=== PATIENT | female | born 1945 | race African-American/Black ===

== ENCOUNTER 2016-08-28 17:58 | Inpatient (IN) | payer OTHER ==
[~2016-08-28] VITALS: Ht 160 cm; Wt 92.6 kg
[~2016-08-28 17:58] MED LIST: ADVAIR 100/501 DISK IH; ADVAIR 250/501 DISK IH; ADVAIR HFA120 INHALA IH; ALPRAZOLAM0.25 M2 PO; ANTIVERT25 MG PO; APRESOLINE25 MG PO; ARTIFICIAL TEAR15 M3 BOTH EYES; ASPIR-LOW81 MG PO; AUGMENTIN875 MG PO; BENTYL10 MG PO; CALAN40 MG PO; CATAPRES0.2 MG PO; CIPRO500 MG PO; CLARITIN10 M3 PO; D-VERT25 MG PO; DELTASONE20 M1 PO; DIABETA,MICRONAS5 MG PO; DIABETA5 MG PO; DULCOLAX10 MG PR; ENDOCET 5-3251 EAC1 PO; ENDOCET 7.5-321 EACH PO; FLEET MINERAL133 ML PR; FLONASE16 G1 BOTH NARES; FLONASE16 GM NS; FORTAMET1000 M1 PO; GABAPENTIN300 MG PO; GABAPENTIN600 MG PO; GLUCOPHAGE500 MG PO; GLUCOVANCE 51 TABLET PO; GLYBURIDE5 MG PO; HUMALOG100 UNIT/1 SC; HUMALOG100 UNIT/2 SC; HYDRALAZINE HCL10 MG PO; HYDROCHLOROTHIA25 MG PO; IBUPROFEN800 MG PO; KEFLEX500 MG PO; LAMISIL PO; LASIX20 MG PO; LEVEMIR FL100 UNIT/1 SC; LEVEMIR100 UNIT/2 SC; LEVOFLOXACIN750 MG PO; LEXAPRO5 MG PO; LIDODERM700 MG TP; LISINOPRIL40 MG PO; LOPRESSOR50 MG PO; LORCET 5-325 M1 EACH PO; LORTAB 5-325 M1 EACH PO; MECLIZINE HCL25 M3 PO; METFORMIN HCL1000 MG PO; METFORMIN HCL500 MG PO; METOPROLOL SUC100 MG PO; METOPROLOL SUCC25 MG PO; METOPROLOL TART25 MG PO; MILK OF MAGN PO; MONTELUKAST SOD10 MG PO; MOTRIN PM CAPL1 EAC1 PO; MOTRIN800 MG PO; NEURONTIN100 MG PO; NEURONTIN300 MG PO; NICODERM CQ1 EAC2 TD; NICOTINE PATCH1 EAC2 TD; NIFEDICAL XL60 MG PO; NIFEDIPINE ER60 MG PO; NORCO 5/3251 TABLET PO; NOVOLOG 10100 UNITS/ SC; NOVOLOG PE100 UNITS/ SC; OPTIVAR 0.120 DROP/6 BOTH EYES; OXAYDO5 MG PO; PANTOPRAZOLE SO40 MG PO; PRAVACHOL40 MG PO; PRAVASTATIN SOD40 MG PO; PREDNISONE20 MG PO; PROAIR HFA8.5 GM IH; PROVENTIL,2.5 MG/3 M IH; REGLAN10 MG PO; RISPERDAL0.5 MG PO; RISPERDAL1 MG PO; SENNA8.6 M1 PO; SERTRALINE HCL25 MG PO; SIMVASTATIN40 MG PO; SINGULAIR10 MG PO; SPIRIVA RESPIMAT4 GM IH; SPIRIVA1 INHALATI IH; SYSTANE ULTRA; TRAMADOL HCL50 MG PO; TYLENOL PM1 CAPLET PO; TYLENOL REGULA325 MG PO; VALISONE 0.1%15 GM PO; VANOS60 GM TP; VERAPAMIL HCL40 MG PO; VERAPAMIL HCL80 MG PO; VIBRAMYCIN100 M2 PO; XANAX0.125 MG PO; XANAX0.25 MG PO; Xanax PO; ZANTAC150 MG PO; ZESTRIL,PRINIVI40 MG PO; ZESTRIL40 MG PO; ZOCOR40 MG PO; ZOLOFT25 MG PO; ZONEGRAN100 MG PO; [UNRECOGNIZED DRUG - OTHER]
[2016-08-28 19:41] LABS: EOSINOPHIL (%) 1.2 % (0-5); EOSINOPHIL COUNT 0.1 K/uL (0-0.3); HEMATOCRIT 28.2 % (36.0-46.0); IMMATURE GRANULOCYTE (%) 0.3 % (0.0-0.7); IMMATURE GRANULOCYTE COUNT 0.2 K/uL; LYMPHOCYTE COUNT 2.5 K/uL (1.0-2.8); MCH 26.4 PG (29.0-34.0); MCHC 32.6 G/DL (30.0-36.0); MCV 80.8 FL (83-99); MEAN PLAT.VOLUME 9.4 uM^3 (9.5-12.4); MONOCYTE (%) 7.5 % (3-12); MONOCYTE COUNT 0.6 K/uL (0-0.8); NEUTROPHIL (%) 58.8 % (45-76); NEUTROPHIL COUNT 4.6 K/uL (1.8-6.4); PLATELET COUNT 268 K/uL (156-360); RBC DIS.WIDTH-CV 15.6 % (11.8-14.6); RBC DIS.WIDTH-SD 44.5 % (39-53); RED BLOOD COUNT 3.49 M/uL (3.80-5.20); WHITE BLOOD COUNT 7.7 K/uL (4.1-10.2)
[2016-08-28 19:46] LABS: CHLORIDE 113 mEq/L (99-109); POTASSIUM 4.5 mEq/L (3.7-5.4); SODIUM 142 mEq/L (136-147)
[2016-08-28 19:48] LABS: GLUCOSE 144 mg/dL (70-99)
[2016-08-28 19:50] LABS: ANION GAP 11 MEQ/L (2-14)
[2016-08-28 19:52] LABS: GFR ESTIMATE (CALCULATED) 20 mL/min/
[2016-08-28 19:53] LABS: UREA NITROGEN (BUN) 31 mg/dL (9-23)
[2016-08-28 19:57] LABS: ADD MIUA? YES; BILIRUBIN NEGATIVE; BLOOD TRACE; COLOR YELLOW ((YELLOW)); GLUCOSE (STRIP) 100; KETONES NEGATIVE; LEUKOCYTES NEGATIVE; NITRITE NEGATIVE; PH, URINE 6.5 (5-8); PROTEIN (STRIP) >=300; SPECIFIC GRAVITY 1.009 (1.000-1.030); UROBILINOGEN 0.2 MG/DL (0.2-1.0)
[2016-08-28 20:12] LABS: BACTERIA NONE SEEN; CASTS NONE SEEN /LPF; CRYSTALS NONE SEEN; EPITHELIAL CELLS RARE; MUCUS NONE SEEN; PATHOLOGICAL CAST NONE SEEN; RED BLOOD CELLS 0-5 /HPF (0-5); SMALL ROUND CELL NONE SEEN; YEAST-LIKE CELL NONE SEEN
[2016-08-29] VITALS (9 sets, daily range): BP systolic 149–190; BP diastolic 73–100
[2016-08-29 03:14] LABS: TROP-I INTERPRETATION NEGATIVE; TROPONIN-I 0.02 ng/mL (0.0-0.30)
[2016-08-29 04:35] LABS: UR CREATININE CONCENTRATION 78.1 MG/DL
[2016-08-29 09:00] LABS: ANION GAP 8 MEQ/L (2-14); CHLORIDE 113 MEQ/L (99-109); GFR ESTIMATE (CALCULATED) 20 mL/min/; GLUCOSE 116 mg/dL (70-99); SAMPLE HEMOLYSIS CHECK 0; SAMPLE ICTERIC CHECK 0; SAMPLE LIPEMIA CHECK 0; SODIUM 140 MEQ/L (136-147); UREA NITROGEN (BUN) 28 mg/dL (9-23)
[2016-08-29 09:34] LABS: TROP-I INTERPRETATION NEGATIVE; TROPONIN-I 0.01 ng/mL (0.0-0.30)
[2016-08-29 11:44] LABS: POINT-OF-CARE METER ID UU14174225
[2016-08-29 15:17] LABS: TROP-I INTERPRETATION NEGATIVE; TROPONIN-I 0.02 ng/mL (0.0-0.30)
[2016-08-29 19:02] LABS: UR CREATININE CONCENTRATION 122.6 MG/DL
[2016-08-30 03:58] VITALS: BP 146/65
[2016-08-30 06:52] LABS: Estimated Average Glucose 174 mg/dL (70-123); HEMOGLOBIN A1c (GLYCOHEMOGLOB) 7.7 % HGB (Below 5.7)
[2016-08-30 07:06] LABS: EOSINOPHIL COUNT 0.2 K/uL (0-0.3); HEMATOCRIT 25.7 % (36.0-46.0); IMMATURE GRANULOCYTE (%) 0.1 % (0.0-0.7); LYMPHOCYTE COUNT 3.1 K/uL (1.0-2.8); MCH 26.3 PG (29.0-34.0); MCHC 32.3 G/DL (30.0-36.0); MCV 81.6 FL (83-99); MEAN PLAT.VOLUME 10.2 uM^3 (9.5-12.4); MONOCYTE (%) 9.2 % (3-12); MONOCYTE COUNT 0.7 K/uL (0-0.8); NEUTROPHIL (%) 46.3 % (45-76); NEUTROPHIL COUNT 3.4 K/uL (1.8-6.4); PLATELET COUNT 240 K/uL (156-360); RBC DIS.WIDTH-CV 15.7 % (11.8-14.6); RBC DIS.WIDTH-SD 47.1 % (39-53); RED BLOOD COUNT 3.15 M/uL (3.80-5.20); WHITE BLOOD COUNT 7.4 K/uL (4.1-10.2)
[2016-08-30 07:24] VITALS: BP 151/62
[2016-08-30 07:35] LABS: ANION GAP 9 MEQ/L (2-14); CHLORIDE 112 MEQ/L (99-109); GFR ESTIMATE (CALCULATED) 18 mL/min/; GLUCOSE 166 mg/dL (70-99); MAGNESIUM 1.6 mg/dl (1.3-2.7); POTASSIUM 4.2 MEQ/L (3.7-5.4); SAMPLE HEMOLYSIS CHECK 0; SAMPLE ICTERIC CHECK 0; SAMPLE LIPEMIA CHECK 0; SODIUM 141 MEQ/L (136-147); UREA NITROGEN (BUN) 33 mg/dL (9-23)
[2016-08-30 07:42] LABS: INTACT PARATHYROID HORMONE 256 pg/mL (10-69)
[2016-08-30 07:59] LABS: URIC ACID 7.7 mg/dL (3.1-9.2)
[2016-08-30 11:49] VITALS: BP 171/72
[2016-08-30 15:34] VITALS: BP 163/71
[2016-08-30 19:59] VITALS: BP 158/68
[2016-08-31 00:20] VITALS: BP 158/75
[2016-08-31 04:00] VITALS: BP 153/69
[2016-08-31 07:20] LABS: ANION GAP 10 MEQ/L (2-14); CHLORIDE 112 MEQ/L (99-109); GFR ESTIMATE (CALCULATED) 18 mL/min/; GLUCOSE 148 mg/dL (70-99); SAMPLE HEMOLYSIS CHECK 0; SAMPLE ICTERIC CHECK 0; SAMPLE LIPEMIA CHECK 0; SODIUM 142 MEQ/L (136-147); UREA NITROGEN (BUN) 33 mg/dL (9-23)
[2016-08-31 07:57] LABS: HEMATOCRIT 25.5 % (36.0-46.0); MCH 26.1 PG (29.0-34.0); MCHC 32.5 G/DL (30.0-36.0); MCV 80.2 FL (83-99); MEAN PLAT.VOLUME 9.9 uM^3 (9.5-12.4); PLATELET COUNT 238 K/uL (156-360); RBC DIS.WIDTH-CV 15.6 % (11.8-14.6); RED BLOOD COUNT 3.18 M/uL (3.80-5.20); WHITE BLOOD COUNT 5.9 K/uL (4.1-10.2)
[2016-08-31 12:25] VITALS: BP 161/72
[2016-08-31 15:30] VITALS: BP 165/70
[2016-08-31 20:12] VITALS: BP 172/77
[2016-09-01] VITALS: BP 180/70
[2016-09-01 04:00] VITALS: BP 166/72
[2016-09-01 06:33] LABS: EOSINOPHIL (%) 2.5 % (0-5); EOSINOPHIL COUNT 0.2 K/uL (0-0.3); HEMATOCRIT 26.2 % (36.0-46.0); IMMATURE GRANULOCYTE (%) 0.2 % (0.0-0.7); LYMPHOCYTE COUNT 2.5 K/uL (1.0-2.8); MCH 26.4 PG (29.0-34.0); MCHC 32.8 G/DL (30.0-36.0); MCV 80.4 FL (83-99); MEAN PLAT.VOLUME 10.5 uM^3 (9.5-12.4); MONOCYTE (%) 8.5 % (3-12); MONOCYTE COUNT 0.5 K/uL (0-0.8); NEUTROPHIL (%) 48.9 % (45-76); NEUTROPHIL COUNT 3.1 K/uL (1.8-6.4); PLATELET COUNT 230 K/uL (156-360); RBC DIS.WIDTH-CV 15.2 % (11.8-14.6); RBC DIS.WIDTH-SD 44.9 % (39-53); RED BLOOD COUNT 3.26 M/uL (3.80-5.20); WHITE BLOOD COUNT 6.3 K/uL (4.1-10.2)
[2016-09-01 06:56] LABS: ANION GAP 11 MEQ/L (2-14); CHLORIDE 110 MEQ/L (99-109); GFR ESTIMATE (CALCULATED) 17 mL/min/; GLUCOSE 161 mg/dL (70-99); POTASSIUM 4.3 MEQ/L (3.7-5.4); SAMPLE HEMOLYSIS CHECK 0; SAMPLE ICTERIC CHECK 0; SAMPLE LIPEMIA CHECK 0; SODIUM 141 MEQ/L (136-147); UREA NITROGEN (BUN) 39 mg/dL (9-23)
[2016-09-01 07:35] VITALS: BP 178/75
[2016-09-01 11:49] VITALS: BP 171/70
[2016-09-01] MEDS ORDERED: CLONIDINE HCL0.2 MG PO (12:09)
[2016-09-01] MEDS ORDERED: APRESOLINE25 MG PO (12:09)
[2016-09-01] MEDS ORDERED: Procardia XL,Adalat PO (12:09)
[2016-09-01] MEDS ORDERED: INDERAL40 MG PO (12:09)
[2016-09-01 13:30] VITALS: BP 164/60
== END 2016-09-01 14:23 | disposition home health service (06) | DRG 683 ==
LOC: EME 17:58 → EDOF 08-29 01:11 → 5SOUTH 08-29 01:11
PROVIDERS: Emergency Medicine; Family Medicine; Hospitalist; Internal Medicine; Internal Medicine Nephrology; Nurse Practitioner Adult Health
DX: N17.9 Acute kidney failure, unspecified (principal); I16.1 Hypertensive emergency; I12.9 Hypertensive chronic kidney disease with stage 1 through stage 4 chronic kidney disease, or unspecified chronic kidney disease; N18.4 Chronic kidney disease, stage 4 (severe); E11.22 Type 2 diabetes mellitus with diabetic chronic kidney disease; B18.2 Chronic viral hepatitis C; E78.5 Hyperlipidemia, unspecified; D50.9 Iron deficiency anemia, unspecified; F17.210 Nicotine dependence, cigarettes, uncomplicated; E66.9 Obesity, unspecified; Z68.36 Body mass index [BMI] 36.0-36.9, adult; Z23 Encounter for immunization; Z91.14 Patient's other noncompliance with medication regimen; Z79.4 Long term (current) use of insulin; T39.395A Adverse effect of other nonsteroidal anti-inflammatory drugs [NSAID], initial encounter
CPT/HCPCS: 70450; 71010; 76770; 80048; 81003; 82306; 82570; 82948; 83036; 83735; 83970; 84100; 84156; 84300; 84484; 84550; 85025; 85027; 93005; 99281; 99285; J0360; J1200; J1644; J1815; J2270; J2765; J7030

== ENCOUNTER 2017-02-03 18:11 | Emergency (ER) | payer OTHER ==
[~2017-02-03] VITALS: Ht 160 cm; Wt 83.1 kg
[~2017-02-03 18:11] MED LIST changes: +CLONIDINE HCL0.2 MG PO; +INDERAL40 MG PO; +Procardia XL,Adalat PO
[2017-02-03 20:49] LABS: ADD MIUA? YES; BILIRUBIN NEGATIVE; BLOOD NEGATIVE; COLOR YELLOW ((YELLOW)); GLUCOSE (STRIP) >=500; KETONES NEGATIVE; LEUKOCYTES NEGATIVE; NITRITE NEGATIVE; PROTEIN (STRIP) >=500; SPECIFIC GRAVITY 1.012 (1.000-1.030); UROBILINOGEN 0.2 MG/DL (0.2-1.0)
[2017-02-03 20:52] LABS: BACTERIA RARE /HPF; EPITHELIAL CELLS RARE /HPF; MUCUS NONE SEEN /LPF; RED BLOOD CELLS 0-5 /HPF (0-5); UCUL ADDED? NO; WHITE BLOOD CELLS 0-5 /HPF (0-5)
[2017-02-03 20:54] LABS: ANION GAP 12 MEQ/L (2-14); CHLORIDE 113 MEQ/L (99-109); POTASSIUM 4.3 MEQ/L (3.7-5.4); SAMPLE HEMOLYSIS CHECK 0; SAMPLE ICTERIC CHECK 0; SAMPLE LIPEMIA CHECK 0; SODIUM 141 MEQ/L (136-147); TOTAL BILIRUBIN 0.2 MG/DL (0.0-1.0)
[2017-02-03 21:00] LABS: ALKALINE PHOSPHATASE 85 IU/L (3-129); GFR ESTIMATE (CALCULATED) 13 mL/min/; GLUCOSE 229 mg/dL (70-99); UREA NITROGEN (BUN) 35 mg/dL (9-23)
[2017-02-03 21:05] LABS: POINT-OF-CARE METER ID UU14100415
[2017-02-03 22:03] LABS: EOSINOPHIL (%) 1.6 % (0-5); EOSINOPHIL COUNT 0.1 K/uL (0-0.3); IMMATURE GRANULOCYTE (%) 0.5 % (0.0-0.7); INSTRUMENT ABS NEUTROPHIL CT 4.4 K/uL; LYMPHOCYTE COUNT 2.9 K/uL (1.0-2.8); MCH 25.9 PG (29.0-34.0); MCHC 31.3 G/DL (30.0-36.0); MCV 82.7 FL (83-99); MONOCYTE (%) 8.9 % (3-12); MONOCYTE COUNT 0.7 K/uL (0-0.8); NEUTROPHIL (%) 53.5 % (45-76); NEUTROPHIL COUNT 4.4 K/uL (1.8-6.4); RBC DIS.WIDTH-CV 16.4 % (11.8-14.6); RBC DIS.WIDTH-SD 49.2 % (39-53); RED BLOOD COUNT 3.75 M/uL (3.80-5.20); WHITE BLOOD COUNT 8.1 K/uL (4.1-10.2)
[2017-02-03 22:49] VITALS: BP 201/84
[2017-02-03 23:05] LABS: HEMATOLOGY COMMENT 1 SMEAR COMPATIBLE; MEAN PLAT.VOLUME 10.3 uM^3 (9.5-12.4); PLATELET COUNT 121 K/uL (156-360)
== END 2017-02-03 22:51 | disposition home or self-care (01) ==
LOC: EME 18:11
PROVIDERS: Emergency Medicine
DX: I12.9 Hypertensive chronic kidney disease with stage 1 through stage 4 chronic kidney disease, or unspecified chronic kidney disease (principal); N18.9 Chronic kidney disease, unspecified; T46.5X6A Underdosing of other antihypertensive drugs, initial encounter; T38.3X6A Underdosing of insulin and oral hypoglycemic [antidiabetic] drugs, initial encounter; Z91.128 Patient's intentional underdosing of medication regimen for other reason; E11.9 Type 2 diabetes mellitus without complications; I25.2 Old myocardial infarction; E78.5 Hyperlipidemia, unspecified; E66.01 Morbid (severe) obesity due to excess calories; F17.200 Nicotine dependence, unspecified, uncomplicated; Z79.4 Long term (current) use of insulin; Z90.710 Acquired absence of both cervix and uterus
CPT/HCPCS: 70450; 71020; 80053; 81003; 82948; 84484; 85025; 93005; 99281; 99285

== ENCOUNTER 2017-02-10 10:24 | Inpatient (IN) | payer OTHER ==
[~2017-02-10] VITALS: Ht 160 cm; Wt 84.0 kg
[2017-02-10] MEDS ORDERED: HYDRALAZINE HCL25 MG PO (12:18)
[2017-02-10] MEDS ORDERED: NEURONTIN100 MG PO (12:20)
[2017-02-10] MEDS ORDERED: LOPRESSOR100 M1 PO (12:20)
[2017-02-10] MEDS ORDERED: NIFEDIPINE ER60 MG PO (12:20)
[2017-02-10] MEDS ORDERED: HUMALOG100 UNIT/1 SC (12:22)
[2017-02-10] MEDS ORDERED: LEVEMIR100 UNIT/2 SC (12:22)
[2017-02-10] MEDS ORDERED: PROTONIX40 MG PO (12:23)
[2017-02-10] MEDS ORDERED: PROAIR HFA8.5 GM IH (12:23)
[2017-02-10] MEDS ORDERED: ZOLOFT25 MG PO (12:23)
[2017-02-10] MEDS ORDERED: INCRUSE ELLI62.5 MCG IH (12:24)
[2017-02-10 13:11] LABS: HEMATOCRIT 29.8 % (36.0-46.0); MCH 26.2 PG (29.0-34.0); MCHC 32.6 G/DL (30.0-36.0); MCV 80.5 FL (83-99); PLATELET COUNT 232 K/uL (156-360); RBC DIS.WIDTH-CV 15.9 % (11.8-14.6); RBC DIS.WIDTH-SD 46.6 % (39-53); WHITE BLOOD COUNT 8.6 K/uL (4.1-10.2)
[2017-02-10 13:20] LABS: CHLORIDE 112 mEq/L (99-109); POTASSIUM 4.2 mEq/L (3.7-5.4); SODIUM 140 mEq/L (136-147)
[2017-02-10 13:22] LABS: GLUCOSE 280 mg/dL (70-99)
[2017-02-10 13:23] LABS: ANION GAP 13 MEQ/L (2-14)
[2017-02-10 13:24] LABS: TOTAL BILIRUBIN 0.2 mg/dL (0.0-1.0)
[2017-02-10 13:25] LABS: ALKALINE PHOSPHATASE 110 IU/L (3-129)
[2017-02-10 13:26] LABS: ADD MIUA? YES; BILIRUBIN NEGATIVE; BLOOD NEGATIVE; COLOR YELLOW ((YELLOW)); GLUCOSE (STRIP) >=500; KETONES NEGATIVE; LEUKOCYTES NEGATIVE; NITRITE NEGATIVE; PROTEIN (STRIP) >=500; SPECIFIC GRAVITY 1.011 (1.000-1.030); UROBILINOGEN 0.2 MG/DL (0.2-1.0)
[2017-02-10 13:26] LABS: GFR ESTIMATE (CALCULATED) 11 mL/min/
[2017-02-10 13:27] LABS: UREA NITROGEN (BUN) 46 mg/dL (9-23)
[2017-02-10 13:36] LABS: BACTERIA RARE /HPF; EPITHELIAL CELLS NONE SEEN /HPF; HYALINE CASTS 0-5 /LPF; MUCUS TRACE /LPF; RED BLOOD CELLS 0-5 /HPF (0-5); UCUL ADDED? NO; WHITE BLOOD CELLS 0-5 /HPF (0-5)
[2017-02-10 17:13] VITALS: BP 198/88
[2017-02-10 23:34] VITALS: BP 168/82
[2017-02-11 05:50] LABS: EOSINOPHIL (%) 2.2 % (0-5); EOSINOPHIL COUNT 0.2 K/uL (0-0.3); HEMATOCRIT 24.7 % (36.0-46.0); IMMATURE GRANULOCYTE (%) 0.3 % (0.0-0.7); INSTRUMENT ABS NEUTROPHIL CT 3.3 K/uL; LYMPHOCYTE COUNT 2.7 K/uL (1.0-2.8); MCH 26.8 PG (29.0-34.0); MCHC 32.8 G/DL (30.0-36.0); MCV 81.8 FL (83-99); MEAN PLAT.VOLUME 10.1 uM^3 (9.5-12.4); MONOCYTE (%) 10.2 % (3-12); MONOCYTE COUNT 0.7 K/uL (0-0.8); NEUTROPHIL (%) 47.5 % (45-76); NEUTROPHIL COUNT 3.3 K/uL (1.8-6.4); PLATELET COUNT 216 K/uL (156-360); RBC DIS.WIDTH-CV 16.2 % (11.8-14.6); RBC DIS.WIDTH-SD 48.4 % (39-53); RED BLOOD COUNT 3.02 M/uL (3.80-5.20); WHITE BLOOD COUNT 6.9 K/uL (4.1-10.2)
[2017-02-11 06:20] LABS: ANION GAP 9 MEQ/L (2-14); CHLORIDE 115 MEQ/L (99-109); GFR ESTIMATE (CALCULATED) 12 mL/min/; POTASSIUM 3.9 MEQ/L (3.7-5.4); SAMPLE HEMOLYSIS CHECK 0; SAMPLE ICTERIC CHECK 0; SAMPLE LIPEMIA CHECK 0; SODIUM 144 MEQ/L (136-147); UREA NITROGEN (BUN) 45 mg/dL (9-23)
[2017-02-11 06:31] LABS: GLUCOSE 75 mg/dL (70-99)
[2017-02-11 07:45] VITALS: BP 193/89
[2017-02-11 10:29] LABS: POINT-OF-CARE METER ID UU13113696
[2017-02-11 10:58] LABS: AHBS INDEX 0.39; HBSG INDEX 0.38; HEPATITIS B SURFACE ANTIBODY Nonreactive
[2017-02-11 11:01] LABS: ANTI-HEPATITIS A VIRUS (IGM) Nonreactive; HAV INDEX 0.22
[2017-02-11 11:02] LABS: ANTI-HEPATITIS B CORE (IGM) Nonreactive; HBC IgM INDEX 0.06; HPCA INDEX 10.87
[2017-02-11 12:12] LABS: POINT-OF-CARE METER ID UU13113819
[2017-02-11 14:57] VITALS: BP 180/82
[2017-02-11 19:44] VITALS: BP 165/73
[2017-02-11 21:43] LABS: POINT-OF-CARE METER ID UU14188625
[2017-02-11 23:55] VITALS: BP 141/65
[2017-02-12 04:12] VITALS: BP 144/71
[2017-02-12 07:40] LABS: ANION GAP 11 MEQ/L (2-14); CHLORIDE 107 MEQ/L (99-109); GFR ESTIMATE (CALCULATED) 15 mL/min/; GLUCOSE 136 mg/dL (70-99); POTASSIUM 3.7 MEQ/L (3.7-5.4); SAMPLE HEMOLYSIS CHECK 0; SAMPLE ICTERIC CHECK 0; SAMPLE LIPEMIA CHECK 0; SODIUM 140 MEQ/L (136-147); UREA NITROGEN (BUN) 31 mg/dL (9-23)
[2017-02-12 07:42] LABS: EOSINOPHIL (%) 2.2 % (0-5); EOSINOPHIL COUNT 0.2 K/uL (0-0.3); IMMATURE GRANULOCYTE (%) 0.4 % (0.0-0.7); INSTRUMENT ABS NEUTROPHIL CT 4.7 K/uL; LYMPHOCYTE COUNT 3.3 K/uL (1.0-2.8); MCH 26.9 PG (29.0-34.0); MCHC 33.5 G/DL (30.0-36.0); MCV 80.2 FL (83-99); MEAN PLAT.VOLUME 10.8 uM^3 (9.5-12.4); MONOCYTE (%) 8.9 % (3-12); MONOCYTE COUNT 0.8 K/uL (0-0.8); NEUTROPHIL (%) 51.9 % (45-76); NEUTROPHIL COUNT 4.7 K/uL (1.8-6.4); PLATELET COUNT 193 K/uL (156-360); RBC DIS.WIDTH-CV 16.3 % (11.8-14.6); RBC DIS.WIDTH-SD 47.2 % (39-53); RED BLOOD COUNT 3.24 M/uL (3.80-5.20)
[2017-02-12 12:12] VITALS: BP 158/72
[2017-02-12 16:59] LABS: POINT-OF-CARE METER ID UU14174225
[2017-02-12 21:15] LABS: POINT-OF-CARE METER ID UU14188625
[2017-02-12 23:58] VITALS: BP 178/81
[2017-02-13 08:00] VITALS: BP 180/81
[2017-02-13 08:25] LABS: POINT-OF-CARE METER ID UU14174225
[2017-02-13 12:00] VITALS: BP 189/79
[2017-02-13 12:28] LABS: POINT-OF-CARE METER ID UU14188625
[2017-02-13 16:27] VITALS: BP 178/77
[2017-02-13 17:13] LABS: POINT-OF-CARE METER ID UU13113717
[2017-02-13 21:10] VITALS: BP 153/70
[2017-02-14 00:22] VITALS: BP 173/73
[2017-02-14 03:11] VITALS: BP 163/72
[2017-02-14 06:07] LABS: POINT-OF-CARE METER ID UU13113717
[2017-02-14 07:45] VITALS: BP 145/67
[2017-02-14 12:35] LABS: POINT-OF-CARE METER ID UU14174225
[2017-02-14 16:06] VITALS: BP 145/59
[2017-02-14 23:41] VITALS: BP 163/74
[2017-02-15 05:33] VITALS: BP 153/74
[2017-02-15 07:32] LABS: EOSINOPHIL (%) 1.9 % (0-5); EOSINOPHIL COUNT 0.2 K/uL (0-0.3); HEMATOCRIT 24.6 % (36.0-46.0); IMMATURE GRANULOCYTE (%) 0.3 % (0.0-0.7); INSTRUMENT ABS NEUTROPHIL CT 5.1 K/uL; LYMPHOCYTE COUNT 2.4 K/uL (1.0-2.8); MCH 26.2 PG (29.0-34.0); MCHC 31.7 G/DL (30.0-36.0); MCV 82.6 FL (83-99); MEAN PLAT.VOLUME 9.9 uM^3 (9.5-12.4); MONOCYTE (%) 10.1 % (3-12); MONOCYTE COUNT 0.9 K/uL (0-0.8); NEUTROPHIL (%) 59.3 % (45-76); NEUTROPHIL COUNT 5.1 K/uL (1.8-6.4); PLATELET COUNT 195 K/uL (156-360); RBC DIS.WIDTH-CV 16.2 % (11.8-14.6); RBC DIS.WIDTH-SD 49.2 % (39-53); RED BLOOD COUNT 2.98 M/uL (3.80-5.20); WHITE BLOOD COUNT 8.6 K/uL (4.1-10.2)
[2017-02-15 07:44] LABS: ANION GAP 11 MEQ/L (2-14); CHLORIDE 102 MEQ/L (99-109); SAMPLE HEMOLYSIS CHECK 0; SAMPLE ICTERIC CHECK 0; SAMPLE LIPEMIA CHECK 0; SODIUM 135 MEQ/L (136-147)
[2017-02-15 07:51] LABS: GFR ESTIMATE (CALCULATED) 11 mL/min/; GLUCOSE 300 mg/dL (70-99); UREA NITROGEN (BUN) 45 mg/dL (9-23)
[2017-02-15 09:02] LABS: POINT-OF-CARE METER ID UU14174225
[2017-02-15 12:04] VITALS: BP 177/74
[2017-02-15 12:16] LABS: POINT-OF-CARE METER ID UU14188625
[2017-02-15 12:24] VITALS: BP 156/76
[2017-02-15 15:47] VITALS: BP 172/81
[2017-02-15 16:44] LABS: POINT-OF-CARE METER ID UU14188625
[2017-02-15 21:12] LABS: POINT-OF-CARE METER ID UU13113717
[2017-02-15 21:25] VITALS: BP 161/71
[2017-02-15 23:37] VITALS: BP 148/72
[2017-02-16 05:54] LABS: EOSINOPHIL (%) 1.2 % (0-5); EOSINOPHIL COUNT 0.1 K/uL (0-0.3); HEMATOCRIT 24.4 % (36.0-46.0); IMMATURE GRANULOCYTE (%) 0.2 % (0.0-0.7); INSTRUMENT ABS NEUTROPHIL CT 4.9 K/uL; LYMPHOCYTE COUNT 3.7 K/uL (1.0-2.8); MCH 26.6 PG (29.0-34.0); MCHC 32.8 G/DL (30.0-36.0); MCV 81.1 FL (83-99); MEAN PLAT.VOLUME 10.3 uM^3 (9.5-12.4); MONOCYTE (%) 10.1 % (3-12); NEUTROPHIL (%) 50.2 % (45-76); NEUTROPHIL COUNT 4.9 K/uL (1.8-6.4); PLATELET COUNT 189 K/uL (156-360); RBC DIS.WIDTH-SD 47.4 % (39-53); RED BLOOD COUNT 3.01 M/uL (3.80-5.20); WHITE BLOOD COUNT 9.8 K/uL (4.1-10.2)
[2017-02-16 06:44] LABS: ANION GAP 8 MEQ/L (2-14); CHLORIDE 103 MEQ/L (99-109); GFR ESTIMATE (CALCULATED) 15 mL/min/; POTASSIUM 3.8 MEQ/L (3.7-5.4); SAMPLE HEMOLYSIS CHECK 0; SAMPLE ICTERIC CHECK 0; SAMPLE LIPEMIA CHECK 0; SODIUM 140 MEQ/L (136-147); UREA NITROGEN (BUN) 26 mg/dL (9-23)
[2017-02-16 06:46] LABS: GLUCOSE 69 mg/dL (70-99)
[2017-02-16 08:23] LABS: POINT-OF-CARE METER ID UU14188625
[2017-02-16 10:33] LABS: POINT-OF-CARE METER ID UU13113696
[2017-02-16 16:16] VITALS: BP 162/73
[2017-02-16 17:19] LABS: POINT-OF-CARE METER ID UU14188625
[2017-02-16 21:20] LABS: POINT-OF-CARE METER ID UU14174225
[2017-02-16 22:10] VITALS: BP 120/62
[2017-02-16 23:44] VITALS: BP 126/69
[2017-02-17 07:49] VITALS: BP 141/69
[2017-02-17 08:23] LABS: EOSINOPHIL (%) 1.9 % (0-5); EOSINOPHIL COUNT 0.2 K/uL (0-0.3); IMMATURE GRANULOCYTE (%) 0.4 % (0.0-0.7); INSTRUMENT ABS NEUTROPHIL CT 4.6 K/uL; LYMPHOCYTE COUNT 2.3 K/uL (1.0-2.8); MCH 26.3 PG (29.0-34.0); MCHC 31.7 G/DL (30.0-36.0); MCV 82.7 FL (83-99); MEAN PLAT.VOLUME 10.3 uM^3 (9.5-12.4); MONOCYTE COUNT 0.9 K/uL (0-0.8); NEUTROPHIL (%) 57.8 % (45-76); NEUTROPHIL COUNT 4.6 K/uL (1.8-6.4); PLATELET COUNT 201 K/uL (156-360); RBC DIS.WIDTH-SD 48.4 % (39-53); RED BLOOD COUNT 2.78 M/uL (3.80-5.20)
[2017-02-17 08:55] LABS: ANION GAP 10 MEQ/L (2-14); CHLORIDE 104 MEQ/L (99-109); GFR ESTIMATE (CALCULATED) 13 mL/min/; GLUCOSE 172 mg/dL (70-99); POTASSIUM 4.1 MEQ/L (3.7-5.4); SAMPLE HEMOLYSIS CHECK 0; SAMPLE ICTERIC CHECK 0; SAMPLE LIPEMIA CHECK 0; SODIUM 139 MEQ/L (136-147); UREA NITROGEN (BUN) 35 mg/dL (9-23)
[2017-02-17 11:10] LABS: IRON 14 MCG/DL (35-150)
[2017-02-17 11:44] LABS: FERRITIN 87 NG/ML (10-291)
[2017-02-17 12:15] LABS: POINT-OF-CARE METER ID UU14188625
[2017-02-17 15:33] VITALS: BP 165/72
[2017-02-17 17:05] LABS: POINT-OF-CARE METER ID UU14188625
[2017-02-17 23:42] VITALS: BP 137/63
[2017-02-18 06:08] LABS: EOSINOPHIL (%) 1.7 % (0-5); EOSINOPHIL COUNT 0.2 K/uL (0-0.3); IMMATURE GRANULOCYTE (%) 0.3 % (0.0-0.7); INSTRUMENT ABS NEUTROPHIL CT 4.3 K/uL; LYMPHOCYTE COUNT 3.1 K/uL (1.0-2.8); MCH 25.8 PG (29.0-34.0); MCHC 31.2 G/DL (30.0-36.0); MCV 82.8 FL (83-99); MEAN PLAT.VOLUME 9.4 uM^3 (9.5-12.4); MONOCYTE (%) 12.8 % (3-12); MONOCYTE COUNT 1.1 K/uL (0-0.8); NEUTROPHIL (%) 49.3 % (45-76); NEUTROPHIL COUNT 4.3 K/uL (1.8-6.4); PLATELET COUNT 180 K/uL (156-360); RBC DIS.WIDTH-CV 15.8 % (11.8-14.6); RBC DIS.WIDTH-SD 48.2 % (39-53); RED BLOOD COUNT 3.02 M/uL (3.80-5.20); WHITE BLOOD COUNT 8.7 K/uL (4.1-10.2)
[2017-02-18 09:12] VITALS: BP 132/60
[2017-02-18 12:25] LABS: POINT-OF-CARE METER ID UU13113717
[2017-02-18 15:20] VITALS: BP 150/63
[2017-02-18 16:21] LABS: POINT-OF-CARE METER ID UU14188625
[2017-02-18 21:24] LABS: POINT-OF-CARE METER ID UU13113717
[2017-02-18 23:21] VITALS: BP 160/66
[2017-02-19 07:57] LABS: EOSINOPHIL (%) 2.1 % (0-5); EOSINOPHIL COUNT 0.2 K/uL (0-0.3); HEMATOCRIT 23.7 % (36.0-46.0); IMMATURE GRANULOCYTE (%) 0.3 % (0.0-0.7); INSTRUMENT ABS NEUTROPHIL CT 5.2 K/uL; LYMPHOCYTE COUNT 2.6 K/uL (1.0-2.8); MCH 27.1 PG (29.0-34.0); MCHC 32.5 G/DL (30.0-36.0); MCV 83.5 FL (83-99); MEAN PLAT.VOLUME 10.6 uM^3 (9.5-12.4); MONOCYTE (%) 10.1 % (3-12); MONOCYTE COUNT 0.9 K/uL (0-0.8); NEUTROPHIL (%) 58.6 % (45-76); NEUTROPHIL COUNT 5.2 K/uL (1.8-6.4); PLATELET COUNT 198 K/uL (156-360); RBC DIS.WIDTH-CV 15.9 % (11.8-14.6); RBC DIS.WIDTH-SD 48.2 % (39-53); RED BLOOD COUNT 2.84 M/uL (3.80-5.20); WHITE BLOOD COUNT 8.9 K/uL (4.1-10.2)
[2017-02-19 08:59] LABS: ANION GAP 9 MEQ/L (2-14); CHLORIDE 98 MEQ/L (99-109); POTASSIUM 4.4 MEQ/L (3.7-5.4); SAMPLE HEMOLYSIS CHECK 0; SAMPLE ICTERIC CHECK 0; SAMPLE LIPEMIA CHECK 0; UREA NITROGEN (BUN) 36 mg/dL (9-23)
[2017-02-19 09:01] LABS: GFR ESTIMATE (CALCULATED) 10 mL/min/; GLUCOSE 268 mg/dL (70-99); SODIUM 132 MEQ/L (136-147)
[2017-02-19 12:08] VITALS: BP 126/66
[2017-02-19 16:43] VITALS: BP 130/66
[2017-02-19 17:36] LABS: POINT-OF-CARE METER ID UU13113717
[2017-02-19 21:43] LABS: POINT-OF-CARE METER ID UU13113717
[2017-02-19 21:50] VITALS: BP 145/67
[2017-02-20 05:42] LABS: EOSINOPHIL COUNT 0.2 K/uL (0-0.3); HEMATOCRIT 25.1 % (36.0-46.0); IMMATURE GRANULOCYTE (%) 0.5 % (0.0-0.7); IMMATURE GRANULOCYTE COUNT 0.1 K/uL; INSTRUMENT ABS NEUTROPHIL CT 4.9 K/uL; MCH 25.4 PG (29.0-34.0); MCHC 31.1 G/DL (30.0-36.0); MCV 81.8 FL (83-99); MEAN PLAT.VOLUME 10.3 uM^3 (9.5-12.4); MONOCYTE (%) 10.9 % (3-12); NEUTROPHIL (%) 53.8 % (45-76); NEUTROPHIL COUNT 4.9 K/uL (1.8-6.4); NRBC (%) 0.2 /100 WBC (0-0); PLATELET COUNT 197 K/uL (156-360); RBC DIS.WIDTH-CV 15.8 % (11.8-14.6); RED BLOOD COUNT 3.07 M/uL (3.80-5.20); WHITE BLOOD COUNT 9.1 K/uL (4.1-10.2)
[2017-02-20 07:48] VITALS: BP 136/67
[2017-02-20 08:04] LABS: POINT-OF-CARE METER ID UU14174225
[2017-02-20 08:30] LABS: ANION GAP 9 MEQ/L (2-14); CHLORIDE 97 MEQ/L (99-109); POTASSIUM 4.4 MEQ/L (3.7-5.4); SAMPLE HEMOLYSIS CHECK 0; SAMPLE ICTERIC CHECK 0; SAMPLE LIPEMIA CHECK 0; SODIUM 131 MEQ/L (136-147)
[2017-02-20 08:39] LABS: GFR ESTIMATE (CALCULATED) 13 mL/min/; GLUCOSE 256 mg/dL (70-99); UREA NITROGEN (BUN) 26 mg/dL (9-23)
[2017-02-20 16:00] VITALS: BP 148/88
[2017-02-20 18:59] VITALS: BP 152/80
[2017-02-21 08:00] LABS: POINT-OF-CARE METER ID UU14174225
[2017-02-21 08:01] VITALS: BP 121/58
[2017-02-21] MEDS ORDERED: DIPHENHYDR12.5 MG/5 PO (11:06)
[2017-02-21] MEDS ORDERED: NICOTINE PATCH1 EAC2 TD (11:06)
[2017-02-21] MEDS ORDERED: LEVEMIR100 UNIT/2 SC ×2 (11:07)
[2017-02-21] MEDS ORDERED: HYDRALAZINE HCL10 MG PO (11:08)
[2017-02-21 12:03] LABS: POINT-OF-CARE METER ID UU14174225
== END 2017-02-21 16:22 | DRG 683 ==
LOC: EME 10:24 → EDOF 15:00 → 5SOUTH 15:17
PROVIDERS: Hospitalist; Internal Medicine; Internal Medicine Nephrology
PROC: 05HM33Z Insertion of Infusion Device into Right Internal Jugular Vein, Percutaneous Approach (ICD-10-PCS; principal; 2017-02-11)
PROC: B543ZZA Ultrasonography of Right Jugular Veins, Guidance (ICD-10-PCS; principal; 2017-02-11)
PROC: B5131ZA Fluoroscopy of Right Jugular Veins using Low Osmolar Contrast, Guidance (ICD-10-PCS; principal; 2017-02-11)
PROC: 5A1D60Z (ICD-10-PCS; 2017-02-14)
PROC: B543ZZA Ultrasonography of Right Jugular Veins, Guidance (ICD-10-PCS; 2017-02-16)
PROC: 05HM33Z Insertion of Infusion Device into Right Internal Jugular Vein, Percutaneous Approach (ICD-10-PCS; 2017-02-16)
DX: N18.6 End stage renal disease (principal); E87.2 Acidosis; E87.70 Fluid overload, unspecified; E11.65 Type 2 diabetes mellitus with hyperglycemia; E11.22 Type 2 diabetes mellitus with diabetic chronic kidney disease; J44.9 Chronic obstructive pulmonary disease, unspecified; I12.0 Hypertensive chronic kidney disease with stage 5 chronic kidney disease or end stage renal disease; I25.10 Atherosclerotic heart disease of native coronary artery without angina pectoris; D63.1 Anemia in chronic kidney disease; Z68.32 Body mass index [BMI] 32.0-32.9, adult; E11.40 Type 2 diabetes mellitus with diabetic neuropathy, unspecified; F17.210 Nicotine dependence, cigarettes, uncomplicated; B19.20 Unspecified viral hepatitis C without hepatic coma; E78.5 Hyperlipidemia, unspecified; F31.9 Bipolar disorder, unspecified; K21.9 Gastro-esophageal reflux disease without esophagitis
CPT/HCPCS: 71010; 80048; 80053; 80069; 80074; 81003; 82607; 82728; 82746; 82948; 83540; 84466; 85025; 85027; 86706; 93005; 94640; 94640 76; 94799; 99202; 99281; 99285; C1750; C1769; C1894; J0360; J0690; J0881; J1644; J1815; J2250; J2405; J3010; S0020

== ENCOUNTER 2017-05-25 07:19 | Day surgery (SDC) | payer OTHER ==
[~2017-05-25] VITALS: Ht 160 cm; Wt 81.6 kg
[~2017-05-25 07:19] MED LIST changes: +ACETAMINOPHEN325 M1 PO; +COLACE100 MG PO; +DIPHENHYDR12.5 MG/5 PO; +FERROUS SULFAT325 MG PO; +GABAPENTIN100 MG PO; +HYDRALAZINE HCL25 MG PO; +INCRUSE ELLI62.5 MCG IH; +LANTUS 3 M100 UNITS1 SC; +LOPRESSOR100 M1 PO; +METOPROLOL TAR100 MG PO; +OMEPRAZOLE20 M2 PO; +PROTONIX40 MG PO; +SENNA S TABLET1 EACH PO; +[UNRECOGNIZED DRUG - OTHER] TP
[2017-05-25 09:00] LABS: POINT-OF-CARE METER ID UU14174212
[2017-05-25 09:12] VITALS: BP 160/72
[2017-05-25 09:35] LABS: EOSINOPHIL (%) 2.7 % (0-5); EOSINOPHIL COUNT 0.2 K/uL (0-0.3); IMMATURE GRANULOCYTE (%) 0.3 % (0.0-0.7); INSTRUMENT ABS NEUTROPHIL CT 3.6 K/uL; LYMPHOCYTE COUNT 3.1 K/uL (1.0-2.8); MCH 25.2 PG (29.0-34.0); MCHC 32.2 G/DL (30.0-36.0); MCV 78.2 FL (83-99); MEAN PLAT.VOLUME 9.6 uM^3 (9.5-12.4); MONOCYTE COUNT 0.7 K/uL (0-0.8); NEUTROPHIL (%) 47.3 % (45-76); NEUTROPHIL COUNT 3.6 K/uL (1.8-6.4); PLATELET COUNT 206 K/uL (156-360); RBC DIS.WIDTH-SD 52.1 % (39-53); RED BLOOD COUNT 5.24 M/uL (3.80-5.20); WHITE BLOOD COUNT 7.7 K/uL (4.1-10.2)
[2017-05-25 10:17] LABS: POINT-OF-CARE METER ID UU14174212
[2017-05-25 10:22] LABS: ANION GAP 11 MEQ/L (2-14); CHLORIDE 97 MEQ/L (99-109); GFR ESTIMATE (CALCULATED) 13 mL/min/; GLUCOSE 120 mg/dL (70-99); SAMPLE HEMOLYSIS CHECK 2; SAMPLE ICTERIC CHECK 0; SAMPLE LIPEMIA CHECK 0; SODIUM 134 MEQ/L (136-147); UREA NITROGEN (BUN) 35 mg/dL (9-23)
[2017-05-25 10:42] LABS: METH RESISTANT S AUREUS PCR NEGATIVE (NEGATIVE)
[2017-05-25 10:44] LABS: PROBE CHECK PASS; SPECIMEN PROCESSING CONTROL PASS
[2017-05-25 11:48] LABS: POINT-OF-CARE METER ID UU13113675
[2017-05-25 12:15] VITALS: BP 154/69
[2017-05-25 13:16] VITALS: BP 163/67
== END 2017-05-25 13:32 ==
LOC: SDC 07:19
PROVIDERS: Surgery
PROC: 03170JD Bypass Right Brachial Artery to Upper Arm Vein with Synthetic Substitute, Open Approach (ICD-10-PCS; principal; 2017-05-25)
PROC: 3E03317 Introduction of Other Thrombolytic into Peripheral Vein, Percutaneous Approach (ICD-10-PCS; principal; 2017-05-25)
DX: I12.0 Hypertensive chronic kidney disease with stage 5 chronic kidney disease or end stage renal disease (principal); E11.22 Type 2 diabetes mellitus with diabetic chronic kidney disease; N18.6 End stage renal disease; Z99.2 Dependence on renal dialysis; Z91.15 Patient's noncompliance with renal dialysis; E78.00 Pure hypercholesterolemia, unspecified; K21.9 Gastro-esophageal reflux disease without esophagitis; Z87.891 Personal history of nicotine dependence; Z79.4 Long term (current) use of insulin; I25.2 Old myocardial infarction; Z86.73 Personal history of transient ischemic attack (TIA), and cerebral infarction without residual deficits
CPT/HCPCS: 80048; 82948; 84999; 85025; 87641; C1768; J0131; J0690; J1644; J2405; J2720; J3010

== ENCOUNTER → 2017-06-17 | Outpatient (CLI) | payer OTHER | LOC: AMB 08:13 | PROC: 02PYX3Z Removal of Infusion Device from Great Vessel, External Approach (ICD-10-PCS; principal; 2017-06-17) | DX: Z45.2 Encounter for adjustment and management of vascular access device (principal); N18.6 End stage renal disease; Z99.2 Dependence on renal dialysis ==

== ENCOUNTER 2017-07-31 11:39 | Emergency (ER) | payer OTHER ==
[~2017-07-31] VITALS: Ht 165.1 cm; Wt 82.8 kg
[2017-07-31 13:10] LABS: HEMATOCRIT 29.9 % (36.0-46.0); HEMOGLOBIN 9.7 G/DL (11.9-15.5); MCH 27.3 PG (29.0-34.0); MCHC 32.4 G/DL (30.0-36.0); MCV 84.2 FL (83-99); PLATELET COUNT 210 K/uL (156-360); RBC DIS.WIDTH-CV 20.3 % (11.8-14.6); RBC DIS.WIDTH-SD 63.3 % (39-53); RED BLOOD COUNT 3.55 M/uL (3.80-5.20); WHITE BLOOD COUNT 10.9 K/uL (4.1-10.2)
[2017-07-31 13:16] LABS: BASOPHIL (%) 0.4 % (0-1); EOSINOPHIL (%) 0.7 % (0-5); EOSINOPHIL COUNT 0.1 K/uL (0-0.3); IMMATURE GRANULOCYTE (%) 0.3 % (0.0-0.7); LYMPHOCYTE (%) 30.1 % (15-42); LYMPHOCYTE COUNT 3.3 K/uL (1.0-2.8); MONOCYTE (%) 7.1 % (3-12); MONOCYTE COUNT 0.8 K/uL (0-0.8); NEUTROPHIL (%) 61.4 % (45-76); NEUTROPHIL COUNT 6.7 K/uL (1.8-6.4)
[2017-07-31 13:28] LABS: ALBUMIN 3.2 G/DL (3.2-4.8); CHLORIDE 94 MEQ/L (99-109); POTASSIUM 3.7 MEQ/L (3.7-5.4); SODIUM 137 MEQ/L (136-147); TOTAL BILIRUBIN 0.5 MG/DL (0.0-1.0)
[2017-07-31 13:34] LABS: ALKALINE PHOSPHATASE 91 IU/L (3-129); ALT (GPT) 13 IU/L (3-49); AST (GOT) 16 IU/L (2-34); CREATININE 4.8 MG/DL (0.6-1.3); GFR ESTIMATE (CALCULATED) 11 mL/min/; GLUCOSE 139 mg/dL (70-99); UREA NITROGEN (BUN) 26 mg/dL (9-23)
[2017-07-31 13:45] LABS: APPEARANCE SL.HAZY ((CLEAR)); BILIRUBIN NEGATIVE; BLOOD NEGATIVE; COLOR AMBER ((YELLOW)); GLUCOSE (STRIP) NEGATIVE; KETONES NEGATIVE; LEUKOCYTES NEGATIVE; NITRITE NEGATIVE; PROTEIN (STRIP) >=500; SPECIFIC GRAVITY 1.015 (1.000-1.030); UROBILINOGEN 0.2 MG/DL (0.2-1.0)
[2017-07-31 13:52] LABS: BACTERIA RARE /HPF; EPITHELIAL CELLS NONE SEEN /HPF; MUCUS TRACE /LPF; RED BLOOD CELLS 0-5 /HPF (0-5); UCUL ADDED? NO; WHITE BLOOD CELLS 0-5 /HPF (0-5)
[2017-07-31 15:52] VITALS: BP 168/56
[2017-08-01] MEDS ORDERED: ALBUTEROL2.5 MG/3 M IH (16:53)
[2017-08-05] MEDS ORDERED: CALCIUM ACETAT667 MG PO (11:50)
[2017-08-05] MEDS ORDERED: ARICEPT10 MG PO (11:51)
[2017-08-05] MEDS ORDERED: NEPHRO-VITE RX1 EACH PO (11:54)
[2017-08-05] MEDS ORDERED: VITAMIN D32000 UNI1 PO (11:58)
== END 2017-07-31 16:43 | disposition home or self-care (01) ==
LOC: EME 11:39
PROVIDERS: Emergency Medicine
DX: F03.90 Unspecified dementia, unspecified severity, without behavioral disturbance, psychotic disturbance, mood disturbance, and anxiety (principal); R53.1 Weakness; W18.30XA Fall on same level, unspecified, initial encounter; Y92.129 Unspecified place in nursing home as the place of occurrence of the external cause; I12.0 Hypertensive chronic kidney disease with stage 5 chronic kidney disease or end stage renal disease; E11.22 Type 2 diabetes mellitus with diabetic chronic kidney disease; N18.6 End stage renal disease; Z79.4 Long term (current) use of insulin; Z99.2 Dependence on renal dialysis; R29.6 Repeated falls; J44.9 Chronic obstructive pulmonary disease, unspecified; F17.200 Nicotine dependence, unspecified, uncomplicated; E78.5 Hyperlipidemia, unspecified; I25.2 Old myocardial infarction; F32.9 Major depressive disorder, single episode, unspecified; F41.9 Anxiety disorder, unspecified; E66.01 Morbid (severe) obesity due to excess calories; Z68.30 Body mass index [BMI] 30.0-30.9, adult; M19.90 Unspecified osteoarthritis, unspecified site; K21.9 Gastro-esophageal reflux disease without esophagitis
CPT/HCPCS: 70450; 71010; 72125; 73522; 80053; 81003; 83605; 85025; 87040; 87502; 93005; 99281; 99285

== ENCOUNTER 2017-08-01 15:54 | Inpatient (IN) | payer OTHER ==
[~2017-08-01] VITALS: Ht 160 cm; Wt 74.0 kg
[~2017-08-01 15:54] MED LIST changes: +COLACE100 MG GT; -COLACE100 MG PO; +FERROUS SULFAT325 MG GT; -FERROUS SULFAT325 MG PO; +GABAPENTIN100 MG GT; -GABAPENTIN100 MG PO; +OMEPRAZOLE20 M2 GT; -OMEPRAZOLE20 M2 PO; +SENNA S TABLET1 EACH GT; -SENNA S TABLET1 EACH PO
[2017-08-01] MEDS ORDERED: ALBUTEROL2.5 MG/3 M IH (16:53)
[2017-08-01 22:01] VITALS: BP 156/70
[2017-08-02 00:21] LABS: HDL CHOLESTEROL 42 MG/DL (Desirable>=50); LDL CHOLESTEROL 129 mg/dL (Desirable<100); NON-HDL CHOLESTEROL 158 mg/dL (Desirable<160); TOTAL CHOLESTEROL 200 mg/dL (Desirable<200); TRIGLYCERIDES 144 MG/DL (Normal: <150)
[2017-08-02 03:46] VITALS: BP 172/74
[2017-08-02 07:11] LABS: Estimated Average Glucose 169 mg/dL (70-123)
[2017-08-02 07:18] LABS: HEMOGLOBIN A1c (GLYCOHEMOGLOB) 7.5 % HGB (Below 5.7)
[2017-08-02 08:12] VITALS: BP 132/60
[2017-08-02 12:16] VITALS: BP 131/70
[2017-08-02 19:13] VITALS: BP 198/83
[2017-08-03 03:39] VITALS: BP 180/87
[2017-08-03 07:44] VITALS: BP 174/84
[2017-08-03 16:10] VITALS: BP 174/86
[2017-08-03 19:59] VITALS: BP 156/86
[2017-08-04 00:06] VITALS: BP 182/63
[2017-08-04 03:59] VITALS: BP 158/88
[2017-08-04 07:40] LABS: BASOPHIL (%) 0.5 % (0-1); BASOPHIL COUNT 0.1 K/uL (0-0.1); EOSINOPHIL (%) 0.6 % (0-5); EOSINOPHIL COUNT 0.1 K/uL (0-0.3); HEMATOCRIT 35.3 % (36.0-46.0); HEMOGLOBIN 11.5 G/DL (11.9-15.5); IMMATURE GRANULOCYTE (%) 0.3 % (0.0-0.7); LYMPHOCYTE (%) 22.9 % (15-42); LYMPHOCYTE COUNT 2.3 K/uL (1.0-2.8); MCH 27.3 PG (29.0-34.0); MCHC 32.6 G/DL (30.0-36.0); MCV 83.6 FL (83-99); MONOCYTE COUNT 0.9 K/uL (0-0.8); NEUTROPHIL (%) 66.7 % (45-76); NEUTROPHIL COUNT 6.6 K/uL (1.8-6.4); RBC DIS.WIDTH-CV 19.2 % (11.8-14.6); RED BLOOD COUNT 4.22 M/uL (3.80-5.20); WHITE BLOOD COUNT 9.9 K/uL (4.1-10.2)
[2017-08-04 07:49] LABS: CHLORIDE 96 MEQ/L (99-109); CREATININE 5.4 MG/DL (0.6-1.3); GFR ESTIMATE (CALCULATED) 10 mL/min/; GLUCOSE 177 mg/dL (70-99); POTASSIUM 3.5 MEQ/L (3.7-5.4); SODIUM 138 MEQ/L (136-147); UREA NITROGEN (BUN) 32 mg/dL (9-23)
[2017-08-04 08:11] LABS: PLATELET COUNT 274 K/uL (156-360)
[2017-08-04 11:24] LABS: HEPATITIS B SURFACE ANTIGEN Nonreactive
[2017-08-04 15:40] VITALS: BP 183/88
[2017-08-04 19:52] VITALS: BP 179/118
[2017-08-05 00:05] VITALS: BP 141/66
[2017-08-05 02:55] VITALS: BP 138/72
[2017-08-05 08:09] VITALS: BP 136/74
[2017-08-05] MEDS ORDERED: CALCIUM ACETAT667 MG GT (11:50)
[2017-08-05] MEDS ORDERED: ARICEPT10 MG GT (11:51)
[2017-08-05] MEDS ORDERED: NEPHRO-VITE RX1 EACH GT (11:54)
[2017-08-05 11:58] VITALS: BP 138/80
[2017-08-05] MEDS ORDERED: VITAMIN D32000 UNI1 GT (11:58)
[2017-08-05] MEDS ORDERED: ALLERGY RE12.5 MG/5 PO (12:01)
[2017-08-05] MEDS ORDERED: ROBITUSSIN COU237 M2 PO (12:02)
[2017-08-05 20:30] VITALS: BP 164/72
[2017-08-05 23:18] VITALS: BP 159/68
[2017-08-06 03:35] VITALS: BP 132/84
[2017-08-06 08:14] LABS: BASOPHIL (%) 0.2 % (0-1); EOSINOPHIL (%) 0.1 % (0-5); HEMATOCRIT 34.9 % (36.0-46.0); HEMOGLOBIN 11.3 G/DL (11.9-15.5); IMMATURE GRANULOCYTE (%) 0.4 % (0.0-0.7); LYMPHOCYTE (%) 20.2 % (15-42); LYMPHOCYTE COUNT 2.4 K/uL (1.0-2.8); MCH 26.9 PG (29.0-34.0); MCHC 32.4 G/DL (30.0-36.0); MCV 83.1 FL (83-99); MONOCYTE (%) 8.9 % (3-12); MONOCYTE COUNT 1.1 K/uL (0-0.8); NEUTROPHIL (%) 70.2 % (45-76); NEUTROPHIL COUNT 8.4 K/uL (1.8-6.4); PLATELET COUNT 279 K/uL (156-360); RBC DIS.WIDTH-CV 19.4 % (11.8-14.6); RBC DIS.WIDTH-SD 59.1 % (39-53)
[2017-08-06 08:33] LABS: CHLORIDE 93 MEQ/L (99-109); GFR ESTIMATE (CALCULATED) 7 mL/min/; GLUCOSE 172 mg/dL (70-99); POTASSIUM 3.5 MEQ/L (3.7-5.4); SODIUM 137 MEQ/L (136-147)
[2017-08-06 08:49] LABS: UREA NITROGEN (BUN) 57 mg/dL (9-23)
[2017-08-06 10:38] VITALS: BP 141/67
[2017-08-06 11:41] VITALS: BP 178/74
[2017-08-06 19:11] VITALS: BP 166/79
[2017-08-06 23:53] VITALS: BP 175/80
[2017-08-07] VITALS (7 sets, daily range): BP systolic 148–187; BP diastolic 52–87
[2017-08-08 04:10] VITALS: BP 166/86
[2017-08-08 07:14] VITALS: BP 145/65
[2017-08-08 11:25] VITALS: BP 184/78
[2017-08-08 12:59] LABS: MAGNESIUM 2.5 mg/dl (1.3-2.7)
[2017-08-08 13:05] LABS: PHOSPHORUS 5.4 mg/dL (2.5-4.9)
[2017-08-08 15:11] VITALS: BP 142/67
[2017-08-08 19:35] VITALS: BP 162/69
[2017-08-08 23:58] VITALS: BP 148/79
[2017-08-09 03:48] VITALS: BP 157/71
[2017-08-09 07:33] VITALS: BP 142/80
[2017-08-09 09:05] LABS: BASOPHIL (%) 0.7 % (0-1); BASOPHIL COUNT 0.1 K/uL (0-0.1); EOSINOPHIL (%) 0.2 % (0-5); HEMATOCRIT 32.4 % (36.0-46.0); HEMOGLOBIN 10.7 G/DL (11.9-15.5); IMMATURE GRANULOCYTE (%) 0.5 % (0.0-0.7); LYMPHOCYTE (%) 26.7 % (15-42); LYMPHOCYTE COUNT 2.8 K/uL (1.0-2.8); MCH 27.3 PG (29.0-34.0); MCV 82.7 FL (83-99); MONOCYTE (%) 9.6 % (3-12); NEUTROPHIL (%) 62.3 % (45-76); NEUTROPHIL COUNT 6.5 K/uL (1.8-6.4); RBC DIS.WIDTH-CV 19.1 % (11.8-14.6); RBC DIS.WIDTH-SD 57.8 % (39-53); RED BLOOD COUNT 3.92 M/uL (3.80-5.20); WHITE BLOOD COUNT 10.4 K/uL (4.1-10.2)
[2017-08-09 09:18] LABS: ALBUMIN 3.4 g/dL (3.2-4.8); PLATELET COUNT 364 K/uL (156-360)
[2017-08-09 09:19] LABS: CHLORIDE 94 mEq/L (99-109); POTASSIUM 3.8 mEq/L (3.7-5.4); SODIUM 135 mEq/L (136-147)
[2017-08-09 09:21] LABS: GLUCOSE 230 mg/dL (70-99)
[2017-08-09 09:25] LABS: GFR ESTIMATE (CALCULATED) 5 mL/min/
[2017-08-09 09:26] LABS: CREATININE 9.1 mg/dL (0.6-1.3); UREA NITROGEN (BUN) 113 mg/dL (9-23)
[2017-08-09 12:00] VITALS: BP 164/72
[2017-08-09 16:06] VITALS: BP 177/69
[2017-08-09 21:36] VITALS: BP 170/78
[2017-08-09 23:53] VITALS: BP 154/66
[2017-08-10 04:07] VITALS: BP 153/67
[2017-08-10 08:18] VITALS: BP 147/75
[2017-08-10 11:47] VITALS: BP 117/59
[2017-08-10 15:57] VITALS: BP 126/48
[2017-08-10 20:03] VITALS: BP 127/54
[2017-08-11 00:11] VITALS: BP 119/52
[2017-08-11 07:59] LABS: STOOL OCCULT BLD 1ST SPECIMEN POSITIVE
[2017-08-11 08:02] LABS: BASOPHIL (%) 0.3 % (0-1); EOSINOPHIL (%) 0.6 % (0-5); EOSINOPHIL COUNT 0.1 K/uL (0-0.3); HEMATOCRIT 26.5 % (36.0-46.0); HEMOGLOBIN 8.9 G/DL (11.9-15.5); IMMATURE GRANULOCYTE (%) 0.4 % (0.0-0.7); LYMPHOCYTE (%) 25.6 % (15-42); LYMPHOCYTE COUNT 2.4 K/uL (1.0-2.8); MCH 27.8 PG (29.0-34.0); MCHC 33.6 G/DL (30.0-36.0); MCV 82.8 FL (83-99); MONOCYTE (%) 9.4 % (3-12); MONOCYTE COUNT 0.9 K/uL (0-0.8); NEUTROPHIL (%) 63.7 % (45-76); PLATELET COUNT 299 K/uL (156-360); RBC DIS.WIDTH-CV 18.8 % (11.8-14.6); RBC DIS.WIDTH-SD 57.5 % (39-53); WHITE BLOOD COUNT 9.4 K/uL (4.1-10.2)
[2017-08-11 08:27] LABS: TROP-I INTERPRETATION NEGATIVE; TROPONIN-I 0.06 ng/mL (0.0-0.30)
[2017-08-11 09:25] LABS: CHLORIDE 88 MEQ/L (99-109); CREATININE 7.9 MG/DL (0.6-1.3); GFR ESTIMATE (CALCULATED) 6 mL/min/; GLUCOSE 216 mg/dL (70-99); POTASSIUM 3.2 MEQ/L (3.7-5.4); SODIUM 132 MEQ/L (136-147); UREA NITROGEN (BUN) 93 mg/dL (9-23)
[2017-08-11 13:54] VITALS: BP 137/50
[2017-08-11 14:38] LABS: HEMATOCRIT 26.1 % (36.0-46.0); HEMOGLOBIN 8.4 G/DL (11.9-15.5); MCV 83.1 FL (83-99)
[2017-08-11 16:35] LABS: TROP-I INTERPRETATION NEGATIVE; TROPONIN-I 0.04 ng/mL (0.0-0.30)
[2017-08-11 16:45] VITALS: BP 160/63
[2017-08-11 20:24] VITALS: BP 120/55
[2017-08-11 21:50] VITALS: BP 126/60
[2017-08-12] VITALS (7 sets, daily range): BP systolic 120–152; BP diastolic 55–66
[2017-08-12 00:47] LABS: TROP-I INTERPRETATION NEGATIVE; TROPONIN-I 0.05 ng/mL (0.0-0.30)
[2017-08-12 09:06] LABS: TROP-I INTERPRETATION NEGATIVE; TROPONIN-I 0.05 ng/mL (0.0-0.30)
[2017-08-12 09:51] LABS: CHLORIDE 93 MEQ/L (99-109); GFR ESTIMATE (CALCULATED) 14 mL/min/; GLUCOSE 208 mg/dL (70-99); POTASSIUM 3.8 MEQ/L (3.7-5.4); SODIUM 132 MEQ/L (136-147)
[2017-08-12 09:52] LABS: UREA NITROGEN (BUN) 38 mg/dL (9-23)
[2017-08-12 09:54] LABS: BASOPHIL (%) 0.3 % (0-1); EOSINOPHIL (%) 0.9 % (0-5); EOSINOPHIL COUNT 0.1 K/uL (0-0.3); HEMATOCRIT 24.6 % (36.0-46.0); IMMATURE GRANULOCYTE (%) 0.5 % (0.0-0.7); LYMPHOCYTE (%) 18.6 % (15-42); LYMPHOCYTE COUNT 1.8 K/uL (1.0-2.8); MCH 27.8 PG (29.0-34.0); MCHC 32.5 G/DL (30.0-36.0); MCV 85.4 FL (83-99); MONOCYTE (%) 11.7 % (3-12); MONOCYTE COUNT 1.1 K/uL (0-0.8); NEUTROPHIL COUNT 6.5 K/uL (1.8-6.4); RBC DIS.WIDTH-CV 18.6 % (11.8-14.6); RBC DIS.WIDTH-SD 58.8 % (39-53); RED BLOOD COUNT 2.88 M/uL (3.80-5.20); WHITE BLOOD COUNT 9.5 K/uL (4.1-10.2)
[2017-08-12 10:13] LABS: PLAT.SUFFICIENCY ADEQUATE
[2017-08-12 10:17] LABS: PLATELET COUNT 201 K/uL (156-360)
[2017-08-12 16:35] LABS: TROP-I INTERPRETATION NEGATIVE; TROPONIN-I 0.04 ng/mL (0.0-0.30)
[2017-08-13 00:23] VITALS: BP 139/63
[2017-08-13 01:26] LABS: TROP-I INTERPRETATION NEGATIVE; TROPONIN-I 0.04 ng/mL (0.0-0.30)
[2017-08-13 07:36] VITALS: BP 88/54
[2017-08-13 09:49] LABS: BASOPHIL (%) 0.3 % (0-1); EOSINOPHIL (%) 2.1 % (0-5); EOSINOPHIL COUNT 0.2 K/uL (0-0.3); HEMOGLOBIN 7.7 G/DL (11.9-15.5); IMMATURE GRANULOCYTE (%) 0.5 % (0.0-0.7); LYMPHOCYTE (%) 20.1 % (15-42); LYMPHOCYTE COUNT 2.3 K/uL (1.0-2.8); MCHC 32.1 G/DL (30.0-36.0); MCV 84.2 FL (83-99); MONOCYTE COUNT 0.9 K/uL (0-0.8); NEUTROPHIL COUNT 7.8 K/uL (1.8-6.4); RBC DIS.WIDTH-CV 18.7 % (11.8-14.6); RBC DIS.WIDTH-SD 58.4 % (39-53); RED BLOOD COUNT 2.85 M/uL (3.80-5.20); WHITE BLOOD COUNT 11.4 K/uL (4.1-10.2)
[2017-08-13 09:57] LABS: PLATELET COUNT 272 K/uL (156-360)
[2017-08-13 10:48] LABS: TROP-I INTERPRETATION NEGATIVE; TROPONIN-I 0.04 ng/mL (0.0-0.30)
[2017-08-13 11:09] LABS: CHLORIDE 91 MEQ/L (99-109); GFR ESTIMATE (CALCULATED) 9 mL/min/; GLUCOSE 203 mg/dL (70-99); POTASSIUM 3.9 MEQ/L (3.7-5.4); SODIUM 131 MEQ/L (136-147)
[2017-08-13 11:10] LABS: CREATININE 5.7 MG/DL (0.6-1.3); UREA NITROGEN (BUN) 58 mg/dL (9-23)
[2017-08-13 16:12] LABS: TROP-I INTERPRETATION NEGATIVE; TROPONIN-I 0.04 ng/mL (0.0-0.30)
[2017-08-13 16:17] VITALS: BP 108/63
[2017-08-13 19:54] VITALS: BP 153/60
[2017-08-14 00:54] VITALS: BP 173/74
[2017-08-14 01:02] LABS: TROP-I INTERPRETATION NEGATIVE; TROPONIN-I 0.03 ng/mL (0.0-0.30)
[2017-08-14 05:03] VITALS: BP 152/65
[2017-08-14 07:36] VITALS: BP 194/82
[2017-08-14 09:33] LABS: BASOPHIL (%) 0.5 % (0-1); BASOPHIL COUNT 0.1 K/uL (0-0.1); EOSINOPHIL (%) 1.6 % (0-5); EOSINOPHIL COUNT 0.2 K/uL (0-0.3); HEMATOCRIT 33.4 % (36.0-46.0); IMMATURE GRANULOCYTE (%) 0.3 % (0.0-0.7); LYMPHOCYTE (%) 16.3 % (15-42); LYMPHOCYTE COUNT 1.7 K/uL (1.0-2.8); MCH 27.4 PG (29.0-34.0); MCHC 32.9 G/DL (30.0-36.0); MCV 83.3 FL (83-99); MONOCYTE (%) 9.2 % (3-12); NEUTROPHIL (%) 72.1 % (45-76); NEUTROPHIL COUNT 7.5 K/uL (1.8-6.4); PLATELET COUNT 233 K/uL (156-360); RBC DIS.WIDTH-CV 18.7 % (11.8-14.6); RBC DIS.WIDTH-SD 55.8 % (39-53); WHITE BLOOD COUNT 10.4 K/uL (4.1-10.2)
[2017-08-14 09:56] LABS: PLAT.SUFFICIENCY ADEQUATE; RED BLOOD COUNT 4.01 M/uL (3.80-5.20)
[2017-08-14 09:59] LABS: CHLORIDE 91 MEQ/L (99-109); GFR ESTIMATE (CALCULATED) 15 mL/min/; GLUCOSE 171 mg/dL (70-99); POTASSIUM 4.1 MEQ/L (3.7-5.4); SODIUM 133 MEQ/L (136-147); UREA NITROGEN (BUN) 30 mg/dL (9-23)
[2017-08-14 10:00] LABS: CREATININE 3.7 MG/DL (0.6-1.3)
[2017-08-14 10:21] LABS: TROP-I INTERPRETATION NEGATIVE; TROPONIN-I 0.03 ng/mL (0.0-0.30)
[2017-08-14 11:18] VITALS: BP 183/77
[2017-08-14 15:59] VITALS: BP 114/61
[2017-08-14 16:32] LABS: TROP-I INTERPRETATION NEGATIVE; TROPONIN-I 0.03 ng/mL (0.0-0.30)
[2017-08-14 19:40] VITALS: BP 177/74
[2017-08-15] VITALS (7 sets, daily range): BP systolic 135–154; BP diastolic 60–90
[2017-08-15 00:53] LABS: TROP-I INTERPRETATION NEGATIVE; TROPONIN-I 0.03 ng/mL (0.0-0.30)
[2017-08-15 09:14] LABS: BASOPHIL (%) 0.4 % (0-1); EOSINOPHIL COUNT 0.2 K/uL (0-0.3); HEMATOCRIT 30.2 % (36.0-46.0); HEMOGLOBIN 9.8 G/DL (11.9-15.5); IMMATURE GRANULOCYTE (%) 0.5 % (0.0-0.7); LYMPHOCYTE (%) 21.9 % (15-42); LYMPHOCYTE COUNT 2.3 K/uL (1.0-2.8); MCH 26.7 PG (29.0-34.0); MCHC 32.5 G/DL (30.0-36.0); MCV 82.3 FL (83-99); MONOCYTE (%) 8.5 % (3-12); MONOCYTE COUNT 0.9 K/uL (0-0.8); NEUTROPHIL (%) 66.7 % (45-76); PLATELET COUNT 274 K/uL (156-360); RBC DIS.WIDTH-CV 18.1 % (11.8-14.6); RBC DIS.WIDTH-SD 54.4 % (39-53); RED BLOOD COUNT 3.67 M/uL (3.80-5.20); WHITE BLOOD COUNT 10.5 K/uL (4.1-10.2)
[2017-08-15 09:37] LABS: CHLORIDE 88 MEQ/L (99-109); GFR ESTIMATE (CALCULATED) 10 mL/min/; GLUCOSE 187 mg/dL (70-99); POTASSIUM 4.1 MEQ/L (3.7-5.4); SODIUM 130 MEQ/L (136-147)
[2017-08-15 09:45] LABS: CREATININE 5.3 MG/DL (0.6-1.3); UREA NITROGEN (BUN) 53 mg/dL (9-23)
[2017-08-15 10:16] LABS: TROP-I INTERPRETATION NEGATIVE; TROPONIN-I 0.03 ng/mL (0.0-0.30)
[2017-08-15 16:20] LABS: TROP-I INTERPRETATION NEGATIVE; TROPONIN-I 0.03 ng/mL (0.0-0.30)
[2017-08-16 01:16] LABS: TROP-I INTERPRETATION NEGATIVE; TROPONIN-I 0.04 ng/mL (0.0-0.30)
[2017-08-16 03:39] VITALS: BP 140/62
[2017-08-16 07:40] VITALS: BP 175/74
[2017-08-16 08:10] LABS: BASOPHIL (%) 0.3 % (0-1); EOSINOPHIL (%) 2.1 % (0-5); EOSINOPHIL COUNT 0.2 K/uL (0-0.3); HEMATOCRIT 27.7 % (36.0-46.0); HEMOGLOBIN 9.3 G/DL (11.9-15.5); IMMATURE GRANULOCYTE (%) 0.4 % (0.0-0.7); LYMPHOCYTE (%) 18.8 % (15-42); MCH 27.4 PG (29.0-34.0); MCHC 33.6 G/DL (30.0-36.0); MCV 81.7 FL (83-99); MONOCYTE (%) 7.3 % (3-12); MONOCYTE COUNT 0.8 K/uL (0-0.8); NEUTROPHIL (%) 71.1 % (45-76); NEUTROPHIL COUNT 7.6 K/uL (1.8-6.4); PLATELET COUNT 274 K/uL (156-360); RBC DIS.WIDTH-CV 17.6 % (11.8-14.6); RED BLOOD COUNT 3.39 M/uL (3.80-5.20); WHITE BLOOD COUNT 10.7 K/uL (4.1-10.2)
[2017-08-16 08:21] LABS: CHLORIDE 87 MEQ/L (99-109); POTASSIUM 3.9 MEQ/L (3.7-5.4); SODIUM 127 MEQ/L (136-147)
[2017-08-16 08:30] LABS: CREATININE 6.5 MG/DL (0.6-1.3); GFR ESTIMATE (CALCULATED) 8 mL/min/; GLUCOSE 187 mg/dL (70-99); UREA NITROGEN (BUN) 69 mg/dL (9-23)
[2017-08-16 09:24] LABS: TROP-I INTERPRETATION NEGATIVE; TROPONIN-I 0.04 ng/mL (0.0-0.30)
[2017-08-16 13:29] VITALS: BP 141/65
[2017-08-16 15:57] VITALS: BP 152/66
[2017-08-16 16:30] LABS: TROP-I INTERPRETATION NEGATIVE; TROPONIN-I 0.03 ng/mL (0.0-0.30)
[2017-08-16 19:26] VITALS: BP 166/70
[2017-08-17 00:04] VITALS: BP 169/74
[2017-08-17 01:00] LABS: TROP-I INTERPRETATION NEGATIVE; TROPONIN-I 0.03 ng/mL (0.0-0.30)
[2017-08-17 04:08] VITALS: BP 154/68
[2017-08-17 07:02] LABS: BASOPHIL (%) 0.5 % (0-1); BASOPHIL COUNT 0.1 K/uL (0-0.1); EOSINOPHIL (%) 2.3 % (0-5); EOSINOPHIL COUNT 0.2 K/uL (0-0.3); HEMATOCRIT 29.2 % (36.0-46.0); HEMOGLOBIN 9.7 G/DL (11.9-15.5); IMMATURE GRANULOCYTE (%) 0.3 % (0.0-0.7); LYMPHOCYTE (%) 20.3 % (15-42); LYMPHOCYTE COUNT 2.1 K/uL (1.0-2.8); MCH 27.6 PG (29.0-34.0); MCHC 33.2 G/DL (30.0-36.0); MCV 83.2 FL (83-99); MONOCYTE (%) 9.9 % (3-12); NEUTROPHIL (%) 66.7 % (45-76); NEUTROPHIL COUNT 6.9 K/uL (1.8-6.4); PLATELET COUNT 266 K/uL (156-360); RBC DIS.WIDTH-CV 17.6 % (11.8-14.6); RED BLOOD COUNT 3.51 M/uL (3.80-5.20); WHITE BLOOD COUNT 10.4 K/uL (4.1-10.2)
[2017-08-17 07:45] LABS: ALBUMIN 2.8 G/DL (3.2-4.8); ALKALINE PHOSPHATASE 128 IU/L (3-129); ALT (GPT) 9 IU/L (3-49); AST (GOT) 22 IU/L (2-34); CHLORIDE 93 MEQ/L (99-109); DIRECT BILIRUBIN 0.1 mg/dL (0.0-0.3); GLUCOSE 195 mg/dL (70-99); POTASSIUM 4.5 MEQ/L (3.7-5.4); TOTAL BILIRUBIN 0.3 MG/DL (0.0-1.0); TOTAL PROTEIN 6.3 G/DL (6.4-8.3); UREA NITROGEN (BUN) 37 mg/dL (9-23)
[2017-08-17 07:50] LABS: CREATININE 3.9 MG/DL (0.6-1.3); GFR ESTIMATE (CALCULATED) 15 mL/min/; SODIUM 134 MEQ/L (136-147)
[2017-08-17 08:12] VITALS: BP 152/83
[2017-08-17] MEDS ORDERED: ATORVASTATIN CA40 MG GT (16:06)
[2017-08-17] MEDS ORDERED: LABETALOL HCL100 MG GT (16:07)
[2017-08-17] MEDS ORDERED: CARDIZEM30 MG GT (16:07)
[2017-08-17] MEDS ORDERED: LEVEMIR100 UNIT/2 SC (16:09)
[2017-08-17] MEDS ORDERED: NOVOLOG PE100 UNITS/ SC (16:09)
[2017-08-17] MEDS ORDERED: PREVACID SOLUTA30 MG GT (16:11)
[2017-08-17] MEDS ORDERED: ASPIRIN300 MG PR (16:13)
[2017-08-17] MEDS ORDERED: TRAMADOL HCL50 MG GT (16:15)
[2017-08-17 16:24] VITALS: BP 123/62
== END 2017-08-17 18:40 | DRG 64 ==
LOC: EME 15:54 → 4EAST 20:45 → EDOF 20:45 → 5SOUTH 20:45 → ENRESERV 20:46 → 5SOUTH 21:49 → ENRESERV 08-05 16:41 → 5SOUTH 08-05 16:41 → ENRESERV 08-05 18:26 → 4EAST 08-05 20:17 → ENRESERV 08-08 09:40 → 5SOUTH 08-08 17:59
PROVIDERS: Internal Medicine; Internal Medicine Nephrology
PROC: 5A1D70Z Performance of Urinary Filtration, Intermittent, Less than 6 Hours Per Day (ICD-10-PCS; 2017-08-02)
PROC: 0DH63UZ Insertion of Feeding Device into Stomach, Percutaneous Approach (ICD-10-PCS; principal; 2017-08-05)
PROC: 30233N1 Transfusion of Nonautologous Red Blood Cells into Peripheral Vein, Percutaneous Approach (ICD-10-PCS; 2017-08-13)
DX: I63.9 Cerebral infarction, unspecified (principal); R13.10 Dysphagia, unspecified; R47.01 Aphasia; R47.1 Dysarthria and anarthria; E87.1 Hypo-osmolality and hyponatremia; I12.0 Hypertensive chronic kidney disease with stage 5 chronic kidney disease or end stage renal disease; E11.22 Type 2 diabetes mellitus with diabetic chronic kidney disease; N18.6 End stage renal disease; K25.0 Acute gastric ulcer with hemorrhage; K29.80 Duodenitis without bleeding; D63.1 Anemia in chronic kidney disease; E11.42 Type 2 diabetes mellitus with diabetic polyneuropathy; I95.3 Hypotension of hemodialysis; I45.2 Bifascicular block; B18.2 Chronic viral hepatitis C; J43.9 Emphysema, unspecified; G30.9 Alzheimer's disease, unspecified; F02.80 Dementia in other diseases classified elsewhere, unspecified severity, without behavioral disturbance, psychotic disturbance, mood disturbance, and anxiety; E78.5 Hyperlipidemia, unspecified; F31.9 Bipolar disorder, unspecified; K21.9 Gastro-esophageal reflux disease without esophagitis; M62.81 Muscle weakness (generalized); R29.6 Repeated falls; R26.9 Unspecified abnormalities of gait and mobility; M54.9 Dorsalgia, unspecified; R07.89 Other chest pain; R41.82 Altered mental status, unspecified; G43.909 Migraine, unspecified, not intractable, without status migrainosus; M19.90 Unspecified osteoarthritis, unspecified site; F41.9 Anxiety disorder, unspecified; Z99.2 Dependence on renal dialysis; I25.2 Old myocardial infarction; E66.9 Obesity, unspecified; Z68.32 Body mass index [BMI] 32.0-32.9, adult; Z79.4 Long term (current) use of insulin; F17.210 Nicotine dependence, cigarettes, uncomplicated; Z82.49 Family history of ischemic heart disease and other diseases of the circulatory system; Z83.3 Family history of diabetes mellitus; Z86.010 Personal history of colon polyps
CPT/HCPCS: 70450; 70551; 71045; 72125; 73522; 74230; 80048; 80053; 80061; 80069; 80076; 81003; 82272; 82948; 83036; 83605; 83735; 84100; 84484; 85014; 85018; 85025; 86850; 86900; 86901; 86920; 87040; 87340; 87502; 92526 GN; 92610 GN; 92611 GN; 93005; 93880; 94640; 94640 76; 94667; 94668; 94799; 97530 GO; 97530 GP; 99202; 99281; 99285; C9113; J0690; J1644; J1815; J7030; P9016

== ENCOUNTER 2017-08-21 16:15 | Emergency (ER) | payer OTHER ==
[~2017-08-21] VITALS: Ht 167.6 cm; Wt 77.0 kg
[~2017-08-21 16:15] MED LIST changes: +ALBUTEROL2.5 MG/3 M IH; +ALLERGY RE12.5 MG/5 PO; +ARICEPT10 MG GT; +ASPIRIN300 MG PR; +ATORVASTATIN CA40 MG GT; +CALCIUM ACETAT667 MG GT; +CARDIZEM30 MG GT; +LABETALOL HCL100 MG GT; +NEPHRO-VITE RX1 EACH GT; +PREVACID SOLUTA30 MG GT; +ROBITUSSIN COU237 M2 PO; +TRAMADOL HCL50 MG GT; +VITAMIN D32000 UNI1 GT
[2017-08-21 19:12] VITALS: BP 162/53
== END 2017-08-21 19:14 ==
LOC: EME 16:15
DX: R05 Cough (principal); E11.22 Type 2 diabetes mellitus with diabetic chronic kidney disease; I12.9 Hypertensive chronic kidney disease with stage 1 through stage 4 chronic kidney disease, or unspecified chronic kidney disease; N18.9 Chronic kidney disease, unspecified; M19.90 Unspecified osteoarthritis, unspecified site; K21.9 Gastro-esophageal reflux disease without esophagitis; E66.01 Morbid (severe) obesity due to excess calories; F17.200 Nicotine dependence, unspecified, uncomplicated; B19.9 Unspecified viral hepatitis without hepatic coma; D3A.00 Benign carcinoid tumor of unspecified site; F41.9 Anxiety disorder, unspecified; F25.9 Schizoaffective disorder, unspecified; I25.2 Old myocardial infarction; Z99.2 Dependence on renal dialysis; Z79.4 Long term (current) use of insulin; Z86.73 Personal history of transient ischemic attack (TIA), and cerebral infarction without residual deficits
CPT/HCPCS: 71046

== ENCOUNTER 2017-09-01 12:12 | Inpatient (IN) | payer OTHER ==
[~2017-09-01] VITALS: Ht 160 cm; Wt 76.3 kg
[~2017-09-01 12:12] MED LIST changes: +BASAGLAR K100 UNIT/1 SC; -COLACE100 MG GT; +DOCU LIQUI50 MG/5 ML GT; +FEROSUL220 MG/51 GT; -FERROUS SULFAT325 MG GT; -LANTUS 3 M100 UNITS1 SC; -VITAMIN D32000 UNI1 GT; +VITAMIN D32000 UNI2 GT
[2017-09-01 14:29] LABS: BASOPHIL (%) 0.3 % (0-1); EOSINOPHIL (%) 1.3 % (0-5); EOSINOPHIL COUNT 0.1 K/uL (0-0.3); HEMATOCRIT 24.8 % (36.0-46.0); HEMOGLOBIN 8.3 G/DL (11.9-15.5); IMMATURE GRANULOCYTE (%) 0.4 % (0.0-0.7); LYMPHOCYTE (%) 30.7 % (15-42); LYMPHOCYTE COUNT 2.4 K/uL (1.0-2.8); MCH 29.3 PG (29.0-34.0); MCHC 33.5 G/DL (30.0-36.0); MCV 87.6 FL (83-99); MONOCYTE (%) 7.8 % (3-12); MONOCYTE COUNT 0.6 K/uL (0-0.8); NEUTROPHIL (%) 59.5 % (45-76); NEUTROPHIL COUNT 4.7 K/uL (1.8-6.4); PLATELET COUNT 296 K/uL (156-360); RBC DIS.WIDTH-SD 60.4 % (39-53); RED BLOOD COUNT 2.83 M/uL (3.80-5.20)
[2017-09-01 14:33] LABS: INTER. NORMALIZED RATIO 1.1
[2017-09-01 14:36] LABS: PTT 25.9 SEC (25-37)
[2017-09-01 14:38] LABS: ALBUMIN 3.7 g/dL (3.2-4.8); CHLORIDE 98 mEq/L (99-109); POTASSIUM 3.5 mEq/L (3.7-5.4); SODIUM 138 mEq/L (136-147)
[2017-09-01 14:39] LABS: MAGNESIUM 1.9 mg/dL (1.3-2.7)
[2017-09-01 14:41] LABS: GLUCOSE 108 mg/dL (70-99); TOTAL PROTEIN 8.1 g/dL (6.4-8.3)
[2017-09-01 14:43] LABS: TOTAL BILIRUBIN 0.5 mg/dL (0.0-1.0)
[2017-09-01 14:44] LABS: ALKALINE PHOSPHATASE 109 IU/L (3-129)
[2017-09-01 14:45] LABS: GFR ESTIMATE (CALCULATED) 27 mL/min/
[2017-09-01 14:46] LABS: AST (GOT) 28 IU/L (2-34); CREATININE 2.3 mg/dL (0.6-1.3); UREA NITROGEN (BUN) 12 mg/dL (9-23)
[2017-09-01 14:48] LABS: ALT (GPT) 18 IU/L (3-49); CREATINE KINASE 47 IU/L (1-294); TOTAL CK 47 IU/L (1-294); TROP-I INTERPRETATION NEGATIVE; TROPONIN-I 0.04 ng/mL (0.0-0.30)
[2017-09-01 14:53] LABS: CKMB RELATIVE INDEX 2.1 (0.0-3.9)
[2017-09-01] MEDS ORDERED: PREVACID SOLUTA30 MG GT (16:33)
[2017-09-01] MEDS ORDERED: DUONEB 2.5-0.5 M3 ML AEROSOL (16:40)
[2017-09-01] MEDS ORDERED: HUMALOG100 UNIT/2 SC (16:42)
[2017-09-01] MEDS ORDERED: ASPIRIN PR (17:00)
[2017-09-01] MEDS ORDERED: CARDIZEM30 MG GT (17:09)
[2017-09-01] MEDS ORDERED: LABETALOL HCL100 MG GT (17:10)
[2017-09-01 20:00] VITALS: BP 157/67
[2017-09-01 20:17] LABS: HEMATOCRIT 23.8 % (36.0-46.0); MCV 85.9 FL (83-99)
[2017-09-02] VITALS (13 sets, daily range): BP systolic 98–170; BP diastolic 54–83
[2017-09-02 00:38] LABS: HEMATOCRIT 22.9 % (36.0-46.0); HEMOGLOBIN 7.5 G/DL (11.9-15.5); MCH 28.8 PG (29.0-34.0); MCHC 32.8 G/DL (30.0-36.0); MCV 88.1 FL (83-99); PLATELET COUNT 251 K/uL (156-360); RBC DIS.WIDTH-CV 18.9 % (11.8-14.6); RBC DIS.WIDTH-SD 60.5 % (39-53); WHITE BLOOD COUNT 7.7 K/uL (4.1-10.2)
[2017-09-02 07:33] LABS: HEMOGLOBIN 8.1 G/DL (11.9-15.5); MCV 84.5 FL (83-99)
[2017-09-02 07:35] LABS: IRON 78 MCG/DL (35-150); TRANSFERRIN (TIBC) 211.9 mg/dL (215-380); TRANSFERRIN SATUR. 37 % (20-55)
[2017-09-02 07:38] LABS: ABSOLUTE RETICULOCYTE CT. 0.1 M/uL (0.02-0.08); IMM.RETIC FRACTION 21.5 % (3-19); RETIC HGB EQUIVALENT 32.3 (28-36); RETICULOCYTE COUNT 3.7 % (0.5-1.8)
[2017-09-02 08:23] LABS: FERRITIN 742 NG/ML (10-291)
[2017-09-02 16:16] LABS: HEMATOCRIT 29.8 % (36.0-46.0); HEMOGLOBIN 9.8 G/DL (11.9-15.5); MCH 27.8 PG (29.0-34.0); MCHC 32.9 G/DL (30.0-36.0); MCV 84.7 FL (83-99); PLATELET COUNT 260 K/uL (156-360); RBC DIS.WIDTH-CV 20.1 % (11.8-14.6); RBC DIS.WIDTH-SD 62.2 % (39-53); WHITE BLOOD COUNT 8.1 K/uL (4.1-10.2)
[2017-09-02 16:24] LABS: RED BLOOD COUNT 3.52 M/uL (3.80-5.20)
[2017-09-02 21:25] LABS: HEMATOCRIT 29.9 % (36.0-46.0); HEMOGLOBIN 9.7 G/DL (11.9-15.5); MCV 84.2 FL (83-99)
[2017-09-03 00:16] VITALS: BP 115/55
[2017-09-03 00:42] LABS: HEMOGLOBIN 9.7 G/DL (11.9-15.5); MCH 28.1 PG (29.0-34.0); MCHC 33.4 G/DL (30.0-36.0); MCV 84.1 FL (83-99); PLATELET COUNT 257 K/uL (156-360); RBC DIS.WIDTH-CV 19.8 % (11.8-14.6); RBC DIS.WIDTH-SD 60.4 % (39-53); RED BLOOD COUNT 3.45 M/uL (3.80-5.20)
[2017-09-03 04:15] VITALS: BP 108/54
[2017-09-03 06:36] LABS: BASOPHIL (%) 0.5 % (0-1); EOSINOPHIL (%) 3.8 % (0-5); EOSINOPHIL COUNT 0.3 K/uL (0-0.3); HEMATOCRIT 29.9 % (36.0-46.0); HEMOGLOBIN 9.6 G/DL (11.9-15.5); IMMATURE GRANULOCYTE (%) 0.2 % (0.0-0.7); LYMPHOCYTE COUNT 2.6 K/uL (1.0-2.8); MCH 27.1 PG (29.0-34.0); MCHC 32.1 G/DL (30.0-36.0); MCV 84.5 FL (83-99); MONOCYTE (%) 8.6 % (3-12); MONOCYTE COUNT 0.7 K/uL (0-0.8); NEUTROPHIL (%) 55.9 % (45-76); NEUTROPHIL COUNT 4.6 K/uL (1.8-6.4); PLATELET COUNT 271 K/uL (156-360); RBC DIS.WIDTH-CV 19.9 % (11.8-14.6); RBC DIS.WIDTH-SD 61.4 % (39-53); RED BLOOD COUNT 3.54 M/uL (3.80-5.20); WHITE BLOOD COUNT 8.3 K/uL (4.1-10.2)
[2017-09-03 07:03] LABS: CHLORIDE 100 MEQ/L (99-109); GFR ESTIMATE (CALCULATED) 11 mL/min/; GLUCOSE 159 mg/dL (70-99); POTASSIUM 3.4 MEQ/L (3.7-5.4); SODIUM 137 MEQ/L (136-147)
[2017-09-03 07:35] LABS: CREATININE 5.1 MG/DL (0.6-1.3); UREA NITROGEN (BUN) 28 mg/dL (9-23)
[2017-09-03 08:25] LABS: HEMATOCRIT 28.7 % (36.0-46.0); HEMOGLOBIN 9.4 G/DL (11.9-15.5); MCHC 32.8 G/DL (30.0-36.0); MCV 85.4 FL (83-99); PLATELET COUNT 254 K/uL (156-360); RBC DIS.WIDTH-CV 19.9 % (11.8-14.6); RBC DIS.WIDTH-SD 62.2 % (39-53); RED BLOOD COUNT 3.36 M/uL (3.80-5.20); WHITE BLOOD COUNT 8.1 K/uL (4.1-10.2)
[2017-09-03 12:47] VITALS: BP 141/65
[2017-09-03 16:44] VITALS: BP 155/70
[2017-09-03 20:15] VITALS: BP 132/64
[2017-09-03 23:00] VITALS: BP 149/95
[2017-09-04 04:00] VITALS: BP 98/53
[2017-09-04 08:26] LABS: BASOPHIL (%) 0.7 % (0-1); BASOPHIL COUNT 0.1 K/uL (0-0.1); EOSINOPHIL (%) 3.5 % (0-5); EOSINOPHIL COUNT 0.3 K/uL (0-0.3); HEMATOCRIT 29.5 % (36.0-46.0); HEMOGLOBIN 9.5 G/DL (11.9-15.5); IMMATURE GRANULOCYTE (%) 0.1 % (0.0-0.7); LYMPHOCYTE (%) 37.6 % (15-42); LYMPHOCYTE COUNT 2.8 K/uL (1.0-2.8); MCH 27.9 PG (29.0-34.0); MCHC 32.2 G/DL (30.0-36.0); MCV 86.8 FL (83-99); MONOCYTE (%) 10.5 % (3-12); MONOCYTE COUNT 0.8 K/uL (0-0.8); NEUTROPHIL (%) 47.6 % (45-76); NEUTROPHIL COUNT 3.5 K/uL (1.8-6.4); PLATELET COUNT 212 K/uL (156-360); RBC DIS.WIDTH-CV 19.9 % (11.8-14.6); RBC DIS.WIDTH-SD 62.7 % (39-53); WHITE BLOOD COUNT 7.4 K/uL (4.1-10.2)
[2017-09-04 08:27] VITALS: BP 152/70
[2017-09-04 08:47] LABS: ALBUMIN 3.2 G/DL (3.2-4.8); CHLORIDE 98 MEQ/L (99-109); POTASSIUM 3.3 MEQ/L (3.7-5.4); SODIUM 135 MEQ/L (136-147); TOTAL BILIRUBIN 0.4 MG/DL (0.0-1.0)
[2017-09-04 08:56] LABS: ALKALINE PHOSPHATASE 108 IU/L (3-129); ALT (GPT) 13 IU/L (3-49); AST (GOT) 21 IU/L (2-34); GFR ESTIMATE (CALCULATED) 14 mL/min/; TOTAL PROTEIN 6.4 G/DL (6.4-8.3); UREA NITROGEN (BUN) 22 mg/dL (9-23)
[2017-09-04 08:57] LABS: GLUCOSE 99 mg/dL (70-99)
[2017-09-04 13:16] VITALS: BP 179/72
[2017-09-04 16:33] VITALS: BP 141/68
[2017-09-04 19:43] VITALS: BP 146/83
[2017-09-04 23:29] VITALS: BP 177/78
[2017-09-05 05:40] VITALS: BP 176/74
[2017-09-05 06:55] VITALS: BP 117/56
[2017-09-05 07:08] LABS: BASOPHIL (%) 0.7 % (0-1); BASOPHIL COUNT 0.1 K/uL (0-0.1); EOSINOPHIL (%) 3.2 % (0-5); EOSINOPHIL COUNT 0.2 K/uL (0-0.3); HEMATOCRIT 28.8 % (36.0-46.0); HEMOGLOBIN 9.5 G/DL (11.9-15.5); IMMATURE GRANULOCYTE (%) 0.1 % (0.0-0.7); LYMPHOCYTE (%) 36.1 % (15-42); LYMPHOCYTE COUNT 2.7 K/uL (1.0-2.8); MCH 27.9 PG (29.0-34.0); MCV 84.7 FL (83-99); MONOCYTE COUNT 0.7 K/uL (0-0.8); NEUTROPHIL (%) 50.9 % (45-76); NEUTROPHIL COUNT 3.9 K/uL (1.8-6.4); PLATELET COUNT 226 K/uL (156-360); RBC DIS.WIDTH-CV 19.4 % (11.8-14.6); WHITE BLOOD COUNT 7.6 K/uL (4.1-10.2)
[2017-09-05 07:46] LABS: ALBUMIN 3.2 G/DL (3.2-4.8); ALKALINE PHOSPHATASE 117 IU/L (3-129); ALT (GPT) 13 IU/L (3-49); AST (GOT) 22 IU/L (2-34); CHLORIDE 94 MEQ/L (99-109); GFR ESTIMATE (CALCULATED) 10 mL/min/; POTASSIUM 3.5 MEQ/L (3.7-5.4); SODIUM 133 MEQ/L (136-147); TOTAL BILIRUBIN 0.4 MG/DL (0.0-1.0); TOTAL PROTEIN 6.7 G/DL (6.4-8.3)
[2017-09-05 07:48] LABS: CREATININE 5.4 MG/DL (0.6-1.3); GLUCOSE 150 mg/dL (70-99); UREA NITROGEN (BUN) 35 mg/dL (9-23)
[2017-09-05 11:16] VITALS: BP 167/70
[2017-09-05 15:45] VITALS: BP 138/64
[2017-09-05] MEDS ORDERED: NOVOLOG 10100 UNITS/ SC (16:06)
== END 2017-09-05 18:02 | DRG 391 ==
LOC: EME 12:12 → EDOF 16:30 → 5EAST 16:30 → ENRESERV 17:05 → 5EAST 19:21
PROVIDERS: Emergency Medicine; Family Medicine; Internal Medicine; Internal Medicine Nephrology; Specialist
PROC: 0DJ08ZZ Inspection of Upper Intestinal Tract, Via Natural or Artificial Opening Endoscopic (ICD-10-PCS; principal; 2017-09-01)
PROC: 30233N1 Transfusion of Nonautologous Red Blood Cells into Peripheral Vein, Percutaneous Approach (ICD-10-PCS; 2017-09-02)
DX: K29.70 Gastritis, unspecified, without bleeding (principal); K92.2 Gastrointestinal hemorrhage, unspecified; D64.9 Anemia, unspecified; N18.6 End stage renal disease; J43.9 Emphysema, unspecified; K21.9 Gastro-esophageal reflux disease without esophagitis; I12.0 Hypertensive chronic kidney disease with stage 5 chronic kidney disease or end stage renal disease; F31.9 Bipolar disorder, unspecified; E78.5 Hyperlipidemia, unspecified; K26.9 Duodenal ulcer, unspecified as acute or chronic, without hemorrhage or perforation; E11.22 Type 2 diabetes mellitus with diabetic chronic kidney disease; F17.200 Nicotine dependence, unspecified, uncomplicated; B18.2 Chronic viral hepatitis C; R19.5 Other fecal abnormalities; K29.80 Duodenitis without bleeding; E11.42 Type 2 diabetes mellitus with diabetic polyneuropathy; E66.9 Obesity, unspecified; R13.10 Dysphagia, unspecified; F41.9 Anxiety disorder, unspecified; F02.80 Dementia in other diseases classified elsewhere, unspecified severity, without behavioral disturbance, psychotic disturbance, mood disturbance, and anxiety; G30.9 Alzheimer's disease, unspecified; Z86.73 Personal history of transient ischemic attack (TIA), and cerebral infarction without residual deficits; Z93.1 Gastrostomy status; Z99.2 Dependence on renal dialysis; I25.2 Old myocardial infarction; Z90.710 Acquired absence of both cervix and uterus; Z79.4 Long term (current) use of insulin; Z68.29 Body mass index [BMI] 29.0-29.9, adult; Z87.11 Personal history of peptic ulcer disease; Z83.3 Family history of diabetes mellitus; Z82.49 Family history of ischemic heart disease and other diseases of the circulatory system; Z86.010 Personal history of colon polyps
CPT/HCPCS: 36415; 71045; 71046; 80048; 80053; 82550; 82553; 82607; 82728; 82948; 83540; 83735; 83880; 84466; 84484; 85014; 85018; 85025; 85025 GA; 85027; 85046; 85610; 85730; 86850; 86900; 86901; 86920; 87522 90; 93005; 94640; 94640 76; 99202; 99281; 99285; C9113; J1815; J7042; P9016

== ENCOUNTER → 2018-01-04 | Outpatient (CLI) | payer OTHER ==
[~2018-01-04] MED LIST changes: +ASPIRIN PR; +DUONEB 2.5-0.5 M3 ML AEROSOL
== END ==
LOC: RAD 13:30
DX: R13.12 Dysphagia, oropharyngeal phase (principal); Z87.09 Personal history of other diseases of the respiratory system; Z87.01 Personal history of pneumonia (recurrent); Z87.19 Personal history of other diseases of the digestive system; Z86.73 Personal history of transient ischemic attack (TIA), and cerebral infarction without residual deficits
CPT/HCPCS: 74230; 92611 GN; G8996 GN CL; G8997 GN CL; G8998 GN CL

== ENCOUNTER 2018-03-13 09:19 | Day surgery (SDC) | payer OTHER ==
[~2018-03-13] VITALS: Ht 160 cm; Wt 75.0 kg
[~2018-03-13 09:19] MED LIST changes: +FUROSEMIDE40 MG GT; +GLUCAGEN1 MG/1 ML IM; +LANTUS 3 M100 UNITS1 SC; +MEMANTINE HCL5 MG GT; +POTASSIUM CHLO20 ME1 GT; +TRANSDERM-SCOP1 EACH TD; +VITRON-C TABLE1 EACH GT; +VOL-CARE GT
[2018-03-13] MEDS ORDERED: INCRUSE ELLI62.5 MCG IH (09:30)
== END 2018-03-13 11:52 ==
LOC: CATH 09:19
PROVIDERS: Surgery
DX: T82.858A Stenosis of other vascular prosthetic devices, implants and grafts, initial encounter (principal); Y83.2 Surgical operation with anastomosis, bypass or graft as the cause of abnormal reaction of the patient, or of later complication, without mention of misadventure at the time of the procedure; E11.22 Type 2 diabetes mellitus with diabetic chronic kidney disease; I12.0 Hypertensive chronic kidney disease with stage 5 chronic kidney disease or end stage renal disease; N18.6 End stage renal disease; Z99.2 Dependence on renal dialysis; E78.5 Hyperlipidemia, unspecified; Z82.49 Family history of ischemic heart disease and other diseases of the circulatory system; Z83.3 Family history of diabetes mellitus
CPT/HCPCS: 82948; 87641; C1725; C1769; C1874; C1894; J1644; J2250; J3010